=== PATIENT | female | born 1960 | race Caucasian/White ===

== ENCOUNTER → 2017-03-23 16:03 | Outpatient (REF) | payer MEDICARE, MEDICAID, SELFPAY ==
[2017-03-23 19:26] LABS: Amphetamine/Metha Screen,Urine Negative ng/mL (<1000); Barbiturates Screen,Urine Negative ng/mL (<200); Benzodiazepines Screen,Urine Negative ng/mL (200); Cannabinoid Screen,Urine Negative ng/mL (<50); Cocaine Screen,Urine Negative ng/g (<300); Methadone Screen,Urine Negative ng/mL (<300); Opiate Screen,Urine Negative ng/mL (<300); Phencyclidine Screen,Urine Negative ng/mL (<25)
== END ==
LOC: LAB 16:03
PROVIDERS: Visit Provider Emergency Medicine
DX: Z79.899 Other long term (current) drug therapy (principal)
CPT/HCPCS: 80305

== ENCOUNTER → 2017-03-24 11:34 | Outpatient (CLI) | payer MEDICARE, MEDICAID, SELFPAY ==
[2017-03-24 15:02] LABS: Occult Blood,Stool Negative (Negative)
== END ==
PROVIDERS: Visit Provider Emergency Medicine
DX: Z79.899 Other long term (current) drug therapy (principal)
CPT/HCPCS: 82272; G0328

== ENCOUNTER → 2017-04-20 10:16 | Outpatient (REF) | payer MEDICARE, MEDICAID, SELFPAY ==
[2017-04-20 14:08] LABS: Amphetamine/Metha Screen,Urine Negative ng/mL (<1000); Barbiturates Screen,Urine Negative ng/mL (<200); Benzodiazepines Screen,Urine Negative ng/mL (200); Cannabinoid Screen,Urine Negative ng/mL (<50); Cocaine Screen,Urine Negative ng/g (<300); Methadone Screen,Urine Negative ng/mL (<300); Opiate Screen,Urine Positive ng/mL (<300); Phencyclidine Screen,Urine Negative ng/mL (<25)
== END ==
LOC: LAB 10:16
PROVIDERS: Visit Provider Emergency Medicine
DX: Z79.899 Other long term (current) drug therapy (principal)
CPT/HCPCS: 80305

== ENCOUNTER → 2017-05-19 09:47 | Outpatient (REF) | payer MEDICARE, MEDICAID, SELFPAY ==
[2017-05-19 13:59] LABS: Amphetamine/Metha Screen,Urine Negative ng/mL (<1000); Barbiturates Screen,Urine Negative ng/mL (<200); Benzodiazepines Screen,Urine Negative ng/mL (200); Cannabinoid Screen,Urine Negative ng/mL (<50); Cocaine Screen,Urine Negative ng/g (<300); Methadone Screen,Urine Negative ng/mL (<300); Opiate Screen,Urine Positive ng/mL (<300); Phencyclidine Screen,Urine Negative ng/mL (<25)
== END ==
LOC: LAB 09:47
PROVIDERS: Visit Provider Emergency Medicine
DX: Z79.899 Other long term (current) drug therapy (principal)
CPT/HCPCS: 80305

== ENCOUNTER → 2017-06-19 10:39 | Outpatient (CLI) | payer MEDICARE, MEDICAID, SELFPAY ==
[2017-06-19 14:15] LABS: Amphetamine/Metha Screen,Urine Negative ng/mL (<1000); Barbiturates Screen,Urine Negative ng/mL (<200); Benzodiazepines Screen,Urine Negative ng/mL (200); Cannabinoid Screen,Urine Negative ng/mL (<50); Cocaine Screen,Urine Negative ng/g (<300); Methadone Screen,Urine Negative ng/mL (<300); Opiate Screen,Urine Positive ng/mL (<300); Phencyclidine Screen,Urine Negative ng/mL (<25)
== END ==
PROVIDERS: Visit Provider Emergency Medicine
DX: Z79.899 Other long term (current) drug therapy (principal)
CPT/HCPCS: 80305

== ENCOUNTER → 2017-07-17 11:33 | Outpatient (CLI) | payer MEDICARE, MEDICAID, SELFPAY ==
[2017-07-17 19:41] LABS: Amphetamine/Metha Screen,Urine Negative ng/mL (<1000); Barbiturates Screen,Urine Negative ng/mL (<200); Benzodiazepines Screen,Urine Negative ng/mL (200); Cannabinoid Screen,Urine Negative ng/mL (<50); Cocaine Screen,Urine Negative ng/g (<300); Methadone Screen,Urine Negative ng/mL (<300); Opiate Screen,Urine Positive ng/mL (<300); Phencyclidine Screen,Urine Negative ng/mL (<25)
== END ==
PROVIDERS: Visit Provider Emergency Medicine
DX: Z79.899 Other long term (current) drug therapy (principal); E11.9 Type 2 diabetes mellitus without complications
CPT/HCPCS: 80305

== ENCOUNTER → 2017-08-17 13:16 | Outpatient (REF) | payer MEDICARE, MEDICAID, SELFPAY ==
[2017-08-17 18:49] LABS: Amphetamine/Metha Screen,Urine Negative ng/mL (<1000); Barbiturates Screen,Urine Negative ng/mL (<200); Benzodiazepines Screen,Urine Negative ng/mL (<200); Cannabinoid Screen,Urine Negative ng/mL (<50); Cocaine Screen,Urine Negative ng/mL (<300); Methadone Screen,Urine Negative ng/mL (<300); Opiate Screen,Urine Negative ng/mL (<300); Phencyclidine Screen,Urine Negative ng/mL (<25)
== END ==
LOC: LAB 13:16
PROVIDERS: Visit Provider Emergency Medicine
DX: Z79.899 Other long term (current) drug therapy (principal)
CPT/HCPCS: 80305

== ENCOUNTER → 2017-09-14 10:33 | Outpatient (REF) | payer MEDICARE, MEDICAID, SELFPAY ==
[2017-09-14 14:09] LABS: Amphetamine/Metha Screen,Urine Negative ng/mL (<1000); Barbiturates Screen,Urine Negative ng/mL (<200); Benzodiazepines Screen,Urine Positive ng/mL (<200); Cannabinoid Screen,Urine Negative ng/mL (<50); Cocaine Screen,Urine Negative ng/mL (<300); Methadone Screen,Urine Negative ng/mL (<300); Opiate Screen,Urine Positive ng/mL (<300); Phencyclidine Screen,Urine Negative ng/mL (<25)
[2017-09-24 21:08] LABS: Alprazolam Negative (Cutoff=100); Benzodiazepines Negative ng/mL (Cutoff=100); Clonazepam Negative (Cutoff=100); Flurazepam Negative (Cutoff=100); Lorazepam Negative (Cutoff=100); Midazolam Negative (Cutoff=100); Temazepam Negative (Cutoff=100); Triazolam Negative (Cutoff=100)
== END ==
LOC: LAB 10:33
PROVIDERS: Visit Provider Emergency Medicine
DX: Z79.899 Other long term (current) drug therapy (principal)
CPT/HCPCS: 80305; 80346

== ENCOUNTER → 2017-09-15 10:20 | Outpatient (CLI) | payer MEDICARE, MEDICAID, SELFPAY | PROVIDERS: Visit Provider Emergency Medicine | DX: Z79.899 Other long term (current) drug therapy (principal) ==

== ENCOUNTER → 2017-10-14 10:49 | Outpatient (CLI) | payer MEDICARE, MEDICAID, SELFPAY ==
[2017-10-14 14:05] LABS: Amphetamine/Metha Screen,Urine Negative ng/mL (<1000); Barbiturates Screen,Urine Negative ng/mL (<200); Benzodiazepines Screen,Urine Positive ng/mL (<200); Cannabinoid Screen,Urine Negative ng/mL (<50); Cocaine Screen,Urine Negative ng/mL (<300); Methadone Screen,Urine Negative ng/mL (<300); Opiate Screen,Urine Negative ng/mL (<300); Phencyclidine Screen,Urine Negative ng/mL (<25)
== END ==
PROVIDERS: Visit Provider Emergency Medicine
DX: Z79.899 Other long term (current) drug therapy (principal)
CPT/HCPCS: 80305

== ENCOUNTER → 2017-11-10 10:16 | Outpatient (REF) | payer MEDICARE, MEDICAID, SELFPAY ==
[2017-11-10 13:59] LABS: Amphetamine/Metha Screen,Urine Negative ng/mL (<1000); Barbiturates Screen,Urine Negative ng/mL (<200); Benzodiazepines Screen,Urine Positive ng/mL (<200); Cannabinoid Screen,Urine Negative ng/mL (<50); Cocaine Screen,Urine Negative ng/mL (<300); Methadone Screen,Urine Negative ng/mL (<300); Opiate Screen,Urine Negative ng/mL (<300); Phencyclidine Screen,Urine Negative ng/mL (<25)
== END ==
LOC: LAB 10:16
PROVIDERS: Visit Provider Emergency Medicine
DX: Z79.899 Other long term (current) drug therapy (principal)
CPT/HCPCS: 80305

== ENCOUNTER → 2017-11-12 08:20 | Outpatient (CLI) | payer MEDICARE, MEDICAID, SELFPAY ==
[2017-11-18 07:28] LABS: Opiates Negative ng/mL (Cutoff=100)
== END ==
PROVIDERS: Visit Provider Emergency Medicine
DX: Z79.899 Other long term (current) drug therapy (principal)
CPT/HCPCS: 80361; G0480

== ENCOUNTER → 2017-12-11 10:12 | Outpatient (CLI) | payer MEDICARE, MEDICAID, SELFPAY ==
--- NOTE | 2017-12-11 10:16 | MM_ITS ---
MM Dig screening mamm BI w/CAD CAD Screening COMPARISON: Digital mammograms with CAD 04/03/2015 INDICATION: There is no personal or family history of breast cancer TECHNIQUE: Standard CC and MLO images were obtained. R2 CAD reviewed. FINDINGS: Scattered fibroglandular densities are seen throughout both breasts. There are couple benign-appearing calcifications right breast. There is no suspicious lesion and there are no suspicious microcalcifications. IMPRESSION: Fibrofatty parenchyma with no suspicious lesion seen BI-RADS Category: 2 Benign Finding(s) RECOMMENDED FOLLOW-UP: 1YR - 1 YEAR FOLLOW-UP (A letter has been sent to the patient regarding results of the study.)
== END ==
PROVIDERS: PCP Emergency Medicine; Visit Provider Emergency Medicine
DX: Z12.31 Encounter for screening mammogram for malignant neoplasm of breast (principal)
CPT/HCPCS: 77067

== ENCOUNTER → 2018-01-12 13:18 | Outpatient (CLI) | payer MEDICARE, MEDICAID, SELFPAY ==
[2018-01-12 14:26] LABS: Amphetamine/Metha Screen,Urine Negative ng/mL (<1000); Barbiturates Screen,Urine Negative ng/mL (<200); Benzodiazepines Screen,Urine Negative ng/mL (<200); Cannabinoid Screen,Urine Negative ng/mL (<50); Cocaine Screen,Urine Negative ng/mL (<300); Methadone Screen,Urine Negative ng/mL (<300); Opiate Screen,Urine Negative ng/mL (<300); Phencyclidine Screen,Urine Negative ng/mL (<25)
[2018-01-27 06:20] LABS: Opiates Negative ng/mL (Cutoff=100)
== END ==
PROVIDERS: Visit Provider Nurse Practitioner Family
DX: Z79.899 Other long term (current) drug therapy (principal)
CPT/HCPCS: 80305; 80361; G0480

== ENCOUNTER → 2018-03-10 18:03 | Outpatient (CLI) | payer MEDICARE, MEDICAID, SELFPAY ==
[2018-03-10 20:23] LABS: Amphetamine/Metha Screen,Urine Negative ng/mL (<1000); Barbiturates Screen,Urine Negative ng/mL (<200); Benzodiazepines Screen,Urine Negative ng/mL (<200); Cannabinoid Screen,Urine Negative ng/mL (<50); Cocaine Screen,Urine Negative ng/mL (<300); Methadone Screen,Urine Negative ng/mL (<300); Opiate Screen,Urine Negative ng/mL (<300); Phencyclidine Screen,Urine Negative ng/mL (<25)
[2018-03-11 08:44] LABS: Basophils # 0.1 K/mm3 (0-0.2); Basophils % 0.6 % (0.1-2.0); Eosinophils # 0.2 K/mm3 (0.0-0.4); Eosinophils % 1.5 % (0.1-12.0); Hematocrit 46.3 % (37.0-47.0); Hemoglobin 13.8 g/dL (12.2-16.2); Lymphocytes # 4.3 K/mm3 (0.7-4.5); Mean Corpuscular HGB Conc 29.8 g/dL (31.8-35.4); Mean Corpuscular Hemoglobin 30.7 pg (27.0-31.2); Mean Corpuscular Volume 103.1 fl (81-99); Mean Platelet Volume 8.4 fl (7.4-10.4); Monocytes # 0.5 K/mm3 (0.1-1.0); Monocytes % 3.2 % (1.7-9.3); Neutrophils # 8.9 K/mm3 (1.8-7.8); Neutrophils % 63.7 % (37.0-80.0); Platelet Count 524 K/mm3 (142-424); Red Blood Count 4.49 M/mm3 (4.20-5.40); Red Cell Distribution Width 12.7 % (11.5-17.5); White Blood Count 13.9 K/mm3 (4.8-10.8)
[2018-03-11 09:05] LABS: Hemoglobin A1C 6.7 % (0.0-7.0)
[2018-03-11 10:35] LABS: Alanine Aminotransferase 22 U/L (12-78); Albumin Level 3.8 gm/dL (3.4-5.0); Albumin/Globulin Ratio 0.9 (1.1-1.8); Alkaline Phosphatase 116 U/L (46-116); Anion Gap 14.2 mEq/L (5-15); Aspartate Amino Transferase 12 U/L (15-37); Bilirubin,Total 0.3 mg/dL (0.2-1.0); Blood Urea Nitrogen 10 mg/dL (7-18); Calcium 9.5 mg/dL (8.5-10.1); Carbon Dioxide 29 mmol/L (21.0-32.0); Chloride 103 mmol/L (98-107); Chol/HDL Ratio 5.2 (1-3.5); Cholesterol 254 mg/dL (140-200); Creatinine,Serum 0.74 mg/dL (0.55-1.02); Estimated Glomerular Filt Rate 80 ml/min (>60); GFR (African American) 97 ML/MIN (>60); Globulin 4.4 gm/dl (1.3-3.2); Glucose 88 mg/dL (74-106); HDL Cholesterol 49 mg/dL (29-89); LDL Cholesterol 144 mg/dL (0-130); Potassium 4.2 mmoL/L (3.5-5.1); Sodium 142 mmol/L (136-145); T4 (Thyroxine) 9.9 ug/dl (4.7-13.3); Thyroid Stimulating Hormone 1.06 uIU/ml (0.358-3.740); Total Protein,Serum 8.2 gm/dL (6.4-8.2); Triglycerides 307 mg/dL (30-200); VLDL Cholesterol 61 mg/dL (0-40)
[2018-03-13 11:57] LABS: Vitamin D 25 Hydroxy 18.4 ng/mL (30.0-100.0)
[2018-03-15 11:05] LABS: Opiates Negative ng/mL (Cutoff=100)
== END ==
PROVIDERS: Visit Provider Emergency Medicine
DX: Z79.899 Other long term (current) drug therapy (principal); E11.9 Type 2 diabetes mellitus without complications; R53.83 Other fatigue
CPT/HCPCS: 80053; 80061; 80305; 80361; 82652; 83036; 84436; 84443; 85025; G0480

== ENCOUNTER → 2018-05-07 11:22 | Outpatient (CLI) | payer MEDICARE, MEDICAID, SELFPAY ==
[2018-05-07 11:54] LABS: Amphetamine/Metha Screen,Urine Negative ng/mL (<1000); Barbiturates Screen,Urine Negative ng/mL (<200); Benzodiazepines Screen,Urine Positive ng/mL (<200); Cannabinoid Screen,Urine Negative ng/mL (<50); Cocaine Screen,Urine Negative ng/mL (<300); Methadone Screen,Urine Negative ng/mL (<300); Opiate Screen,Urine Positive ng/mL (<300); Phencyclidine Screen,Urine Negative ng/mL (<25)
== END ==
PROVIDERS: Visit Provider Emergency Medicine
DX: Z79.899 Other long term (current) drug therapy (principal)
CPT/HCPCS: 80305

== ENCOUNTER 2018-06-13 22:04 | Outpatient (CLI) | payer MEDICARE, MEDICAID, SELFPAY ==
[2018-06-13 22:25] VITALS: BP 174/88; PULSE 98; RESP 18; TEMP 36.6; O2SAT 94; BMI 29.9
[2018-06-13 22:30] VITALS: BP 171/87; PULSE 98; RESP 18; TEMP 36.6; O2SAT 95
== END 2018-06-13 22:30 | disposition home or self-care (01) ==
LOC: INF 22:05 → UTC.OUT 22:09
PROVIDERS: PCP Emergency Medicine; Visit Provider Emergency Medicine
DX: R60.0 Localized edema (principal)
CPT/HCPCS: 96372

== ENCOUNTER → 2018-07-23 13:18 | Outpatient (CLI) | payer MEDICARE, MEDICAID, SELFPAY ==
[2018-07-23 15:01] LABS: Amphetamine/Metha Screen,Urine Negative ng/mL (<1000); Barbiturates Screen,Urine Negative ng/mL (<200); Benzodiazepines Screen,Urine Positive ng/mL (<200); Cannabinoid Screen,Urine Negative ng/mL (<50); Cocaine Screen,Urine Negative ng/mL (<300); Methadone Screen,Urine Negative ng/mL (<300); Opiate Screen,Urine Positive ng/mL (<300); Phencyclidine Screen,Urine Negative ng/mL (<25)
== END ==
PROVIDERS: Visit Provider Emergency Medicine
DX: Z79.899 Other long term (current) drug therapy (principal)
CPT/HCPCS: 80305

== ENCOUNTER → 2018-09-03 14:00 | Outpatient (CLI) | payer MEDICARE, MEDICAID, SELFPAY ==
[2018-09-03 15:51] LABS: Amphetamine/Metha Screen,Urine Negative ng/mL (<1000); Barbiturates Screen,Urine Negative ng/mL (<200); Benzodiazepines Screen,Urine Positive ng/mL (<200); Cannabinoid Screen,Urine Negative ng/mL (<50); Cocaine Screen,Urine Negative ng/mL (<300); Methadone Screen,Urine Negative ng/mL (<300); Opiate Screen,Urine Negative ng/mL (<300); Phencyclidine Screen,Urine Negative ng/mL (<25)
== END ==
PROVIDERS: Visit Provider Emergency Medicine
DX: R35.0 Frequency of micturition (principal); Z79.899 Other long term (current) drug therapy
CPT/HCPCS: 80305; 87086; 87088; 87186

== ENCOUNTER → 2018-10-01 13:26 | Outpatient (CLI) | payer MEDICARE, MEDICAID, SELFPAY ==
[2018-10-01 15:59] LABS: Amphetamine/Metha Screen,Urine Negative ng/mL (<1000); Barbiturates Screen,Urine Negative ng/mL (<200); Benzodiazepines Screen,Urine Positive ng/mL (<200); Cannabinoid Screen,Urine Negative ng/mL (<50); Cocaine Screen,Urine Negative ng/mL (<300); Methadone Screen,Urine Negative ng/mL (<300); Opiate Screen,Urine Negative ng/mL (<300); Phencyclidine Screen,Urine Negative ng/mL (<25)
[2018-10-13 03:36] LABS: Alprazolam Negative (Cutoff=100); Benzodiazepines Positive ng/mL (Cutoff=100); Clonazepam Negative (Cutoff=100); Flurazepam Negative (Cutoff=100); Lorazepam Negative (Cutoff=100); Midazolam Negative (Cutoff=100); Temazepam Positive (.); Triazolam Negative (Cutoff=100)
[2018-10-13 07:26] LABS: Opiates Negative ng/mL (Cutoff=100)
== END ==
PROVIDERS: Visit Provider Emergency Medicine
DX: Z79.899 Other long term (current) drug therapy (principal)
CPT/HCPCS: 80305; 80346; 80361; G0480

== ENCOUNTER → 2019-01-10 11:22 | Outpatient (CLI) | payer MEDICARE, MEDICAID, SELFPAY ==
--- NOTE | 2019-01-10 11:26 | XR_ITS ---
PROCEDURE: XR HIP LT 2-3V W/PELVIS CLINICAL INDICATION: hip pain Left hip pain COMPARISON: HIP2L HIP-2 VIEWS-LT from 09/26/2012 FINDINGS: No fracture or dislocation. No significant degenerative change. No lytic or blastic lesion. There are mild osteoarthritic changes of the left SI joint. IMPRESSION: 1. Negative left hip. 2. Mild degenerative change left SI joint Dictated by: Mikal Grimm MD 01/10/2019 17:47 Electronically signed by Mikal Grimm MD in [place] 01/10/2019 17:47
== END ==
PROVIDERS: PCP Emergency Medicine; Visit Provider Emergency Medicine
DX: M25.552 Pain in left hip (principal)
CPT/HCPCS: 73502

== ENCOUNTER → 2019-01-24 14:15 | Outpatient (CLI) | payer MEDICARE, MEDICAID, SELFPAY ==
[2019-01-24 16:23] LABS: Amphetamine/Metha Screen,Urine Negative ng/mL (<1000); Barbiturates Screen,Urine Negative ng/mL (<200); Benzodiazepines Screen,Urine Positive ng/mL (<200); Cannabinoid Screen,Urine Negative ng/mL (<50); Cocaine Screen,Urine Negative ng/mL (<300); Methadone Screen,Urine Negative ng/mL (<300); Opiate Screen,Urine Positive ng/mL (<300); Phencyclidine Screen,Urine Negative ng/mL (<25)
== END ==
PROVIDERS: Visit Provider Emergency Medicine
DX: R10.2 Pelvic and perineal pain (principal); Z79.899 Other long term (current) drug therapy
CPT/HCPCS: 80305; 87086; 87088; 87186

== ENCOUNTER → 2019-08-04 17:49 | Outpatient (CLI) | payer MEDICARE, MEDICAID, SELFPAY ==
[2019-08-06 14:25] LABS: Covid-19 Nasal PCR Sendout Lex Not Detected
--- NOTE | 2019-08-06 19:15 | PC.NURSE ---
Patient called for test results, results given.
== END ==
PROVIDERS: PCP Physician Assistant; Visit Provider Physician Assistant
DX: Z03.818 Encounter for observation for suspected exposure to other biological agents ruled out (principal)
CPT/HCPCS: U0004

== ENCOUNTER → 2019-08-08 11:16 | Outpatient (CLI) | payer MEDICARE, MEDICAID, SELFPAY ==
--- NOTE | 2019-08-08 11:24 | XR_ITS ---
PROCEDURE: XR LUMBAR SPINE MIN 4V CLINICAL INDICATION: back and hip pain COMPARISON: No exams were available for comparison FINDINGS: There is lumbarization of S1 with resultant 6 lumbar segments. There is degenerative disc disease of L5 on L6 with 9 mm anterolisthesis of L5. Facet arthritic changes are also present at L5 and L6. Generalized vascular calcification is noted. No acute fracture or dislocation. No lytic or blastic change. IMPRESSION: Degenerative disc disease and facet arthritic change as detailed above Dictated by: Mikal Grimm MD 08/08/2019 12:16 Electronically signed by Mikal Grimm MD in [place] 08/08/2019 12:16
--- NOTE | 2019-08-08 11:24 | XR_ITS ---
PROCEDURE: XR HIP LT 2-3V W/PELVIS CLINICAL INDICATION: back and hip pain COMPARISON: XR HIP LT 2-3V W/PELVIS from 01/10/2019 FINDINGS: No fracture or dislocation is evident. No significant degenerative change. No lytic or blastic change. Unremarkable soft tissues. IMPRESSION: Negative left hip Dictated by: Mikal Grimm MD 08/08/2019 12:14 Electronically signed by Mikal Grimm MD in [place] 08/08/2019 12:14
== END ==
PROVIDERS: PCP Emergency Medicine; Visit Provider Emergency Medicine
DX: M54.5 Low back pain; M25.552 Pain in left hip
CPT/HCPCS: 72110; 73502

== ENCOUNTER → 2019-08-30 13:16 | Outpatient (CLI) | payer MEDICARE, MEDICAID, SELFPAY ==
--- NOTE | 2019-08-30 13:23 | MR_ITS ---
PROCEDURE: MR LUMBAR SPINE WO CON CLINICAL INDICATION: back pain Lbp xyrs. Worse on rt side. lt hip pain. Numbness and tingling down lt leg. 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 3-D MIP and myelographic images are also rendered and reviewed FINDINGS: There are 6 lumbar segments with the same numbering system as was used on the previous lumbar spine MRI. The spinal cord ends at the T12-L1 level. L2-L3: Unremarkable. L3-L4: Unremarkable. L4-5: Unremarkable. L5-L6: There is degenerative disc disease with 7 mm anterolisthesis of L5 on L6 with bulging disc along with facet and ligamentum hypertrophy with resultant canal stenosis. Transverse narrowing of the canal noted at 7 mm which appears somewhat worse than when compared to the previous exam. The anterolisthesis is somewhat greater as well. There is severe bilateral foraminal narrowing which is worse. Hypertrophic changes are present at the facets. L6-S1: Unremarkable. IMPRESSION: There is degenerative disc disease at L5-L6 with 7 mm anterolisthesis of L5 on L6 with bulging disc along with facet and ligamentum hypertrophy with resultant canal stenosis. Transverse narrowing of the canal noted at 7 mm which appears somewhat worse than when compared to the previous exam. The anterolisthesis is somewhat greater as well. There is severe bilateral foraminal narrowing which is worse. Hypertrophic changes are present at the facets There are 6 lumbar segments Dictated by: Mikal Grimm MD 08/31/2019 11:49 Electronically signed by Mikal Grimm MD in [place] 08/31/2019 11:49
== END ==
PROVIDERS: PCP Emergency Medicine; Visit Provider Emergency Medicine
DX: M54.16 Radiculopathy, lumbar region (principal)
CPT/HCPCS: 72148; 76376

== ENCOUNTER → 2019-11-23 13:21 | Outpatient (CLI) | payer MEDICARE, MEDICAID, SELFPAY ==
[2019-11-23 16:11] LABS: Basophils # 0.1 K/mm3 (0-0.2); Basophils % 0.9 % (0.1-2.0); Eosinophils # 0.2 K/mm3 (0.0-0.4); Eosinophils % 1.7 % (0.1-12.0); Hematocrit 45.2 % (37.0-47.0); Hemoglobin 14.1 g/dL (12.2-16.2); Lymphocytes # 3.4 K/mm3 (0.7-4.5); Lymphocytes % 28.3 % (10-50); Mean Corpuscular HGB Conc 31.2 g/dL (31.8-35.4); Mean Corpuscular Hemoglobin 32.9 pg (27.0-31.2); Mean Corpuscular Volume 105.3 fl (81-99); Mean Platelet Volume 8.3 fl (7.4-10.4); Monocytes # 0.5 K/mm3 (0.1-1.0); Monocytes % 4.1 % (1.7-9.3); Neutrophils # 7.9 K/mm3 (1.8-7.8); Neutrophils % 64.9 % (37.0-80.0); Platelet Count 375 K/mm3 (142-424); Red Blood Count 4.29 M/mm3 (4.20-5.40); Red Cell Distribution Width 12.7 % (11.5-17.5); White Blood Count 12.1 K/mm3 (4.8-10.8)
[2019-11-23 16:43] LABS: Alanine Aminotransferase 15 U/L (12-78); Albumin Level 4.6 g/dl (3.5-5.0); Albumin/Globulin Ratio 1.3 (1.1-1.8); Alkaline Phosphatase 108 U/L (38-126); Anion Gap 14.5 mEq/L (5-15); Aspartate Amino Transferase 25 U/L (14-36); Bilirubin,Total 0.5 mg/dl (0.2-1.3); Blood Urea Nitrogen 9 mg/dl (7-17); Calcium 9.8 mg/dl (8.4-10.2); Carbon Dioxide 31 mmol/L (22.0-30.0); Chloride 102 mmol/L (98-107); Cholesterol 268 mg/dl (140-200); Estimated Glomerular Filt Rate 102 ml/min (>60); GFR (African American) 123 ML/MIN (>60); Globulin 3.5 g/dL (1.3-3.2); Glucose 148 mg/dl (74-100); HDL Cholesterol 45 mg/dl (40-60); Potassium 4.5 mmoL/L (3.5-5.1); Sodium 143 mmol/L (136-145); Total Protein,Serum 8.1 g/dl (6.3-8.2); Triglycerides 289 mg/dl (30-150); VLDL Cholesterol 58 mg/dL (0-40)
[2019-11-23 16:54] LABS: Direct LDL Cholesterol 190.93 mg/dL (100-129)
[2019-11-23 16:59] LABS: 25-OH Vitamin D, Total 36.7 ng/mL (30-100)
[2019-11-23 17:00] LABS: Free T4 (Free Thyroxine) 0.98 ng/dl (0.78-2.19)
[2019-11-23 17:14] LABS: Hemoglobin A1C 6.4 % (4.0-6.0); Thyroid Stimulating Hormone 0.84 uIU/mL (0.465-4.68)
[2019-11-24 13:21] LABS: Creatinine,Urine Random 46 mg/dL (Not Estab.)
[2019-11-24 13:24] LABS: Microalbumin/Creatinine Ratio 32.8
== END ==
PROVIDERS: Visit Provider Emergency Medicine
DX: E11.9 Type 2 diabetes mellitus without complications (principal); E55.9 Vitamin D deficiency, unspecified; Z79.4 Long term (current) use of insulin
CPT/HCPCS: 80053; 80061; 82043; 82306; 82570; 83036; 84439; 84443; 85025

== ENCOUNTER → 2020-05-02 13:49 | Outpatient (CLI) | payer MEDICARE, MEDICAID, SELFPAY ==
[2020-05-02 14:12] LABS: Chloride 105 mmol/L (98-107)
[2020-05-02 14:13] LABS: Potassium 4.9 mmoL/L (3.5-5.1); Sodium 142 mmol/L (136-145)
[2020-05-02 14:15] LABS: Alanine Aminotransferase 12 U/L (12-78); Anion Gap 12.9 mEq/L (5-15); Aspartate Amino Transferase 23 U/L (14-36); Blood Urea Nitrogen 11 mg/dl (7-17); Carbon Dioxide 29 mmol/L (22.0-30.0); Estimated Glomerular Filt Rate 85 ml/min (>60); GFR (African American) 103 ML/MIN (>60)
[2020-05-02 14:16] LABS: Albumin Level 4.6 g/dl (3.5-5.0); Albumin/Globulin Ratio 1.4 (1.1-1.8); Alkaline Phosphatase 88 U/L (38-126); Bilirubin,Total 0.5 mg/dl (0.2-1.3); Calcium 9.6 mg/dl (8.4-10.2); Chol/HDL Ratio 5.9 (1-3.5); Cholesterol 265 mg/dl (140-200); Globulin 3.3 g/dL (1.3-3.2); Glucose 97 mg/dl (74-100); HDL Cholesterol 45 mg/dl (40-60); Total Protein,Serum 7.9 g/dl (6.3-8.2); Triglycerides 296 mg/dl (30-150); VLDL Cholesterol 59 mg/dL (0-40)
[2020-05-02 14:27] LABS: Direct LDL Cholesterol 169.89 mg/dL (100-129)
[2020-05-02 16:36] LABS: Erythrocyte Sedimentation Rate 18 mm/hr (0-30)
== END ==
PROVIDERS: Visit Provider Emergency Medicine
DX: E11.9 Type 2 diabetes mellitus without complications (principal); I10 Essential (primary) hypertension; Z79.4 Long term (current) use of insulin
CPT/HCPCS: 80053; 80061; 85651

== ENCOUNTER → 2020-08-13 07:58 | Outpatient (CLI) | payer MEDICARE, MEDICAID, SELFPAY ==
--- NOTE | 2020-08-13 07:59 | MM_ITS ---
PROCEDURE INFORMATION: Exam: MG Screening 3D Mammography Exam date and time: 08/13/2020 7:59 AM Age: 59 years old Clinical indication: Encounter for screening mammogram for malignant neoplasm of breast TECHNIQUE: Imaging protocol: Screening tomosynthesis and 2D mammography including computer-aided detection (CAD) when performed. COMPARISON: 1. MG SCBI MM Dig screening mamm BI w/CAD 12/11/2017 10:25 AM 2. MG DMSB DIG MAMM-SCREEN ELIECER 04/03/2015 4:44 PM FINDINGS: MAMMOGRAPHY: Breast composition: The breast tissue is composed of scattered areas of fibroglandular density. Mass: None. Architectural distortion: None. Calcifications: No suspicious calcifications. Asymmetric density: None. Skin thickening: None. Axillary adenopathy: None. IMPRESSION: No mammographic evidence of malignancy. Annual screening is recommended unless otherwise clinically indicated. ASSESSMENT: BI-RADS Category 1: Negative
[2020-08-13 08:52] LABS: Basophils # 0.1 K/mm3 (0-0.2); Basophils % 0.8 % (0.1-2.0); Eosinophils # 0.2 K/mm3 (0.0-0.4); Eosinophils % 1.7 % (0.1-12.0); Hematocrit 46.2 % (37.0-47.0); Hemoglobin 14.7 g/dL (12.2-16.2); Lymphocytes # 2.9 K/mm3 (0.7-4.5); Lymphocytes % 25.1 % (10-50); Mean Corpuscular HGB Conc 31.7 g/dL (31.8-35.4); Mean Corpuscular Hemoglobin 32.1 pg (27.0-31.2); Mean Corpuscular Volume 101.3 fl (81-99); Mean Platelet Volume 6.8 fl (7.4-10.4); Monocytes # 0.5 K/mm3 (0.1-1.0); Monocytes % 4.1 % (1.7-9.3); Neutrophils % 68.3 % (37.0-80.0); Platelet Count 343 K/mm3 (142-424); Red Blood Count 4.56 M/mm3 (4.20-5.40); Red Cell Distribution Width 12.3 % (11.5-17.5); White Blood Count 11.7 K/mm3 (4.8-10.8)
[2020-08-13 09:21] LABS: Hemoglobin A1C 6.4 % (4.0-6.0)
[2020-08-13 09:48] LABS: Alanine Aminotransferase 12 U/L (12-78); Albumin Level 4.5 g/dl (3.5-5.0); Albumin/Globulin Ratio 1.4 (1.1-1.8); Alkaline Phosphatase 109 U/L (38-126); Anion Gap 12.6 mEq/L (5-15); Aspartate Amino Transferase 19 U/L (14-36); Bilirubin,Total 0.6 mg/dl (0.2-1.3); Blood Urea Nitrogen 10 mg/dl (7-17); Calcium 9.8 mg/dl (8.4-10.2); Carbon Dioxide 30 mmol/L (22.0-30.0); Chloride 106 mmol/L (98-107); Chol/HDL Ratio 3.1 (1-3.5); Cholesterol 159 mg/dl (140-200); Estimated Glomerular Filt Rate 102 ml/min (>60); GFR (African American) 123 ML/MIN (>60); Globulin 3.2 g/dL (1.3-3.2); Glucose 124 mg/dl (74-100); HDL Cholesterol 52 mg/dl (40-60); Potassium 5.6 mmoL/L (3.5-5.1); Sodium 143 mmol/L (136-145); Total Protein,Serum 7.7 g/dl (6.3-8.2); Triglycerides 167 mg/dl (30-150); VLDL Cholesterol 33 mg/dL (0-40)
[2020-08-13 10:01] LABS: Direct LDL Cholesterol 78.69 mg/dL (100-129)
[2020-08-13 10:04] LABS: 25-OH Vitamin D, Total 50.4 ng/mL (30-100); Free T4 (Free Thyroxine) 0.85 ng/dl (0.78-2.19)
[2020-08-13 10:18] LABS: Thyroid Stimulating Hormone 0.63 uIU/mL (0.465-4.68)
== END ==
PROVIDERS: PCP Emergency Medicine; Visit Provider Emergency Medicine
DX: Z12.31 Encounter for screening mammogram for malignant neoplasm of breast (principal)
CPT/HCPCS: 36415; 77063; 77067; 80053; 80061; 82306; 83036; 84439; 84443; 85025

== ENCOUNTER → 2020-08-13 08:30 | Outpatient (CLI) | payer MEDICARE, MEDICAID, SELFPAY | PROVIDERS: Visit Provider Emergency Medicine | DX: E87.5 Hyperkalemia (principal); I10 Essential (primary) hypertension; E11.9 Type 2 diabetes mellitus without complications; E66.3 Overweight; Z79.4 Long term (current) use of insulin; Z68.30 Body mass index [BMI] 30.0-30.9, adult; Z12.31 Encounter for screening mammogram for malignant neoplasm of breast | CPT/HCPCS: 36415; 77063; 77067; 80053; 80061; 82306; 83036; 84439; 84443; 85025 ==

== ENCOUNTER → 2020-08-16 16:56 | Outpatient (CLI) | payer MEDICARE, MEDICAID, SELFPAY ==
[2020-08-16 18:21] LABS: Anion Gap 14.7 mEq/L (5-15); Blood Urea Nitrogen 13 mg/dl (7-17); Calcium 9.2 mg/dl (8.4-10.2); Carbon Dioxide 27 mmol/L (22.0-30.0); Chloride 105 mmol/L (98-107); Estimated Glomerular Filt Rate 85 ml/min (>60); GFR (African American) 103 ML/MIN (>60); Glucose 116 mg/dl (74-100); Potassium 4.7 mmoL/L (3.5-5.1); Sodium 142 mmol/L (136-145)
[2020-08-16 19:27] LABS: Vitamin B12 323 pg/mL (239-931)
[2020-08-16 19:28] LABS: Folate 2.43 ng/mL
== END ==
PROVIDERS: Visit Provider Emergency Medicine
DX: E87.5 Hyperkalemia (principal)
CPT/HCPCS: 80048; 82607; 82746

== ENCOUNTER → 2020-10-22 17:48 | Outpatient (CLI) | payer MEDICARE, MEDICAID, SELFPAY ==
[2020-10-22 21:12] LABS: Benzodiazepines Screen,Urine Positive ng/ml (<200)
[2020-10-22 21:13] LABS: Amphetamine/Metha Screen,Urine Negative ng/ml (<1000)
[2020-10-22 21:14] LABS: Barbiturates Screen,Urine Negative ng/ml (<200); Cannabinoid Screen,Urine Negative ng/ml (<50)
[2020-10-22 21:15] LABS: Cocaine Screen,Urine Negative ng/ml (<300)
[2020-10-22 21:16] LABS: Methadone Screen,Urine Negative ng/ml (<300); Opiate Screen,Urine Positive ng/ml (<300)
[2020-10-22 21:17] LABS: Phencyclidine Screen,Urine Negative ng/ml (<25)
== END ==
PROVIDERS: Visit Provider Emergency Medicine
DX: Z79.899 Other long term (current) drug therapy (principal)
CPT/HCPCS: 80305

== ENCOUNTER → 2020-10-25 12:30 | Outpatient (CLI) | payer MEDICARE, MEDICAID, SELFPAY | PROVIDERS: PCP Emergency Medicine; Visit Provider Nurse Practitioner | DX: Z20.822 Contact with and (suspected) exposure to COVID-19 (principal); U07.1 COVID-19 | CPT/HCPCS: C9803; U0003; U0005 ==

== ENCOUNTER → 2021-06-18 22:42 | Outpatient (CLI) | payer MEDICARE, MEDICAID, SELFPAY ==
--- NOTE | 2021-06-18 23:54 | XR_ITS ---
FINAL REPORT CLINICAL HISTORY: FALL COMPARISON: August 08, 2019 FINDINGS: 5 views of the lumbar spine were obtained. There is no evidence of fracture. There is mild rightward curvature. There is 9 mm of anterolisthesis of L4 on L5. There are mild and moderate degenerative changes. There is facet arthropathy of the lower lumbar spine. There is a questionable L4 pars defect. Vascular calcifications are seen. IMPRESSION: Questionable L4 pars defect. If indicated CT scan could further evaluate. Multilevel degenerative changes, details as above. Reviewed, Interpreted and Dictated by Reji Palomo III, MD Transcribed by Emperatriz Gomes Authenticated by Reji Palomo III, MD on 06/19/2021 09:19:[address] [facility]
--- NOTE | 2021-06-18 23:55 | XR_ITS ---
FINAL REPORT CLINICAL HISTORY: FALL COMPARISON: August 08, 2019 FINDINGS: LEFT HIP: Three views of the left hip pelvis demonstrate no acute fracture or dislocation. There are mild degenerative changes. The visualized bony structures are well aligned. No soft tissue abnormality is seen. IMPRESSION: Stable degenerative changes. Reviewed, Interpreted and Dictated by Reji Palomo III, MD Transcribed by Emperatriz Gomes Authenticated by Reji Palomo III, MD on 06/19/2021 09:19:36 AM [facility]
== END ==
PROVIDERS: PCP Emergency Medicine; Visit Provider Emergency Medicine
DX: M54.50 Low back pain, unspecified (principal); M53.3 Sacrococcygeal disorders, not elsewhere classified; M25.552 Pain in left hip; W19.XXXA Unspecified fall, initial encounter
CPT/HCPCS: 72110; 73502

== ENCOUNTER → 2021-11-19 10:51 | Outpatient (CLI) | payer MEDICARE, MEDICAID, SELFPAY ==
[2021-11-19 11:24] LABS: Basophils # 0.2 K/mm3 (0-0.2); Basophils % 1.8 % (0.1-2.0); Eosinophils # 0.1 K/mm3 (0.0-0.4); Hemoglobin 15.6 g/dL (12.2-16.2); Lymphocytes # 2.9 K/mm3 (0.7-4.5); Lymphocytes % 23.5 % (10-50); Mean Corpuscular HGB Conc 32.6 g/dL (31.8-35.4); Mean Corpuscular Hemoglobin 33.2 pg (27.0-31.2); Mean Corpuscular Volume 101.7 fl (81-99); Mean Platelet Volume 7.5 fl (7.4-10.4); Monocytes # 0.5 K/mm3 (0.1-1.0); Monocytes % 3.7 % (1.7-9.3); Neutrophils # 8.6 K/mm3 (1.8-7.8); Neutrophils % 69.9 % (37.0-80.0); Platelet Count 414 K/mm3 (142-424); Red Blood Count 4.71 M/mm3 (4.20-5.40); White Blood Count 12.3 K/mm3 (4.8-10.8)
[2021-11-19 11:51] LABS: Hemoglobin A1C 6.2 % (4.0-6.0)
[2021-11-19 12:07] LABS: Alanine Aminotransferase 16 U/L (12-78); Albumin Level 4.3 g/dl (3.5-5.0); Albumin/Globulin Ratio 1.3 (1.1-1.8); Alkaline Phosphatase 127 U/L (38-126); Anion Gap 15.8 mEq/L (5-15); Aspartate Amino Transferase 27 U/L (14-36); Bilirubin,Total 0.6 mg/dl (0.2-1.3); Blood Urea Nitrogen 6 mg/dl (7-17); Calcium 9.5 mg/dl (8.4-10.2); Carbon Dioxide 28 mmol/L (22.0-30.0); Chloride 101 mmol/L (98-107); Chol/HDL Ratio 4.8 (1-3.5); Cholesterol 227 mg/dl (140-200); Estimated Glomerular Filt Rate 101 ml/min (>60); GFR (African American) 122 ML/MIN (>60); Globulin 3.3 g/dL (1.3-3.2); Glucose 130 mg/dl (74-100); HDL Cholesterol 47 mg/dl (40-60); Potassium 3.8 mmoL/L (3.5-5.1); Sodium 141 mmol/L (136-145); Total Protein,Serum 7.6 g/dl (6.3-8.2); Triglycerides 176 mg/dl (30-150); VLDL Cholesterol 35 mg/dL (0-40)
[2021-11-19 12:24] LABS: 25-OH Vitamin D, Total 31.9 ng/mL (30-100); Direct LDL Cholesterol 146.04 mg/dL (100-129); Free T4 (Free Thyroxine) 0.89 ng/dl (0.78-2.19)
[2021-11-19 12:37] LABS: Thyroid Stimulating Hormone 0.31 uIU/mL (0.465-4.68)
== END ==
PROVIDERS: PCP Emergency Medicine; Visit Provider Emergency Medicine
DX: E66.9 Obesity, unspecified (principal); E55.9 Vitamin D deficiency, unspecified; I10 Essential (primary) hypertension; Z79.899 Other long term (current) drug therapy
CPT/HCPCS: 36415; 80053; 80061; 82306; 83036; 84439; 84443; 85025

== ENCOUNTER → 2021-12-04 13:39 | Outpatient (CLI) | payer MEDICARE, MEDICAID, SELFPAY ==
[2021-12-04 17:29] LABS: Influenza A, PCR Not Detected (NotDetected); Influenza B, PCR Not Detected (NotDetected)
[2021-12-04 20:15] LABS: Coronavirus 19, PCR Detected (NotDetected)
== END ==
PROVIDERS: PCP Emergency Medicine; Visit Provider Emergency Medicine
DX: R09.81 Nasal congestion (principal); U07.1 COVID-19
CPT/HCPCS: C9803; U0003; U0005

== ENCOUNTER → 2022-04-04 10:39 | Outpatient (CLI) | payer MEDICARE, MEDICAID, SELFPAY ==
--- NOTE | 2022-04-04 10:39 | US_ITS ---
FINAL REPORT TECHNIQUE: Ultrasound images of the abdomen were obtained. CLINICAL HISTORY: Abdominal pain, hx aaa COMPARISON: none FINDINGS: ABDOMINAL ULTRASOUND COMPLETE: The liver is fatty infiltrated. The gallbladder is surgically absent. The common duct is normal at 2 mm. The right kidney measures 11.5 cm in length and is normal in echogenicity without hydronephrosis. The left kidney measures 9.3 cm in length and is normal in echogenicity without hydronephrosis. The spleen is unremarkable. The pancreas is partially obscured by overlying bowel gas. The visualized portions of the aorta and the IVC are normal. The vena cava is unremarkable. IMPRESSION: Fatty infiltration of the liver. Reviewed, Interpreted and Dictated by Reji Palomo III, MD Transcribed by Kirsty Forrester Authenticated and . [facility]
== END ==
LOC: RAD 10:39
PROVIDERS: PCP Emergency Medicine; Visit Provider Emergency Medicine
DX: R10.9 Unspecified abdominal pain (principal)
CPT/HCPCS: 76700

== ENCOUNTER 2022-07-04 11:39 | Emergency (ER) | payer MEDICARE, MEDICAID, SELFPAY ==
[2022-07-04 11:40] VITALS: BP 180/86; PULSE 93; RESP 16; TEMP 36.9; O2SAT 98; BMI 29.2
--- NOTE | 2022-07-04 12:05 | XR_ITS ---
FINAL REPORT CLINICAL HISTORY: fall, rt ankle pain COMPARISON: None FINDINGS: Right ankle: Three views of the right ankle were obtained. There is no acute fracture or dislocation. The joint spaces and mortise are intact. There is no soft tissue abnormality. Mild degenerative change is noted in the ankle and midfoot. IMPRESSION: No acute bony abnormality. Reviewed, Interpreted and Dictated by Reji Palomo III, MD Transcribed by Concha Esteban Authenticated and [facility]
--- NOTE | 2022-07-04 12:05 | XR_ITS ---
FINAL REPORT CLINICAL HISTORY: fall, rt leg pain COMPARISON: None FINDINGS: There is no acute fracture or dislocation. There is no soft tissue abnormality. Mild degenerative change is present in the knee. IMPRESSION: No acute fracture Reviewed, Interpreted and Dictated by Reji Palomo III, MD Transcribed by Concha Esteban Authenticated and . [facility]
--- NOTE | 2022-07-04 12:06 | PC.NURSE ---
notified rad of orders placed
--- NOTE | 2022-07-04 12:27 | HMH.EDGENADL ---
Discharge Plan Disposition Patient Disposition: Home, Self-Care Prescriptions Prescriptions: No Action (DME) insulin syringe-needle U-100 [UltiCare] 0.3 mL 30 gauge x 1/2 syringe See Dose Instructions .ROUTE .MEDSUPPLY Qty: 10 Rx Instructions: As directed metformin 500 mg tablet 500 mg PO BID Qty: 180 0RF loperamide [Imodium A-D] 2 mg capsule 2 mg PO Q6H PRN (Reason: loose stool) Qty: 30 0RF Trelegy Ellipta 100-62.5-25 mcg blister with device 1 inh inhalation DAILY Qty: 60 2RF (DME) blood-glucose meter Misc See Rx Instructions .Route Qty: 1 0RF Rx Instructions: test sugar twice daily or As directed (DME) Blood Glucose Test Strip See Rx Instructions .Route Qty: 100 1RF Rx Instructions: Test sugar twice daily or As directed (DME) lancets 30 gauge misc See Rx Instructions .Route Qty: 100 1RF Rx Instructions: test twice daily or As directed Ozempic 0.25 mg or 0.5 mg(2 mg/1.5 mL) pen injector 0.25 mg SQ WEEKLY Qty: 1.5 2RF Rx Instructions: 0.25mg weekly for 4weeks then 0.5mg weekly hydrocortisone 2.5 % cream 1 applic TOPICAL BID PRN (Reason: itching) Qty: 30 0RF prochlorperazine maleate [Compazine] 10 mg tablet 10 mg PO BID PRN (Reason: nausea and vomiting) Qty: 20 0RF sertraline 200 mg capsule 200 mg PO DAILY Qty: 30 2RF diazepam [Valium] 5 mg tablet 5 mg PO BID PRN (Reason: anxiety) Qty: 60 1RF gabapentin 800 mg tablet 800 mg PO QID Qty: 120 1RF alcohol swabs [BD Alcohol Swabs] pads, medicated 1 pad TOPICAL NEEDED Qty: 100 1RF (DME) pen needle, diabetic [UltiCare Pen Needle] 31 gauge x 1/4 needle See Dose Instructions .ROUTE .MEDSUPPLY Qty: 100 1RF Dose Instruction: As directed Rx Instructions: As directed fexofenadine [Manuela Allergy] 180 mg tablet 180 mg PO DAILY Qty: 30 0RF atorvastatin 40 mg tablet See Rx Instructions .ROUTE .COMPLEX Qty: 90 0RF Dose Instruction: TAKE ONE TABLET BY MOUTH EVERY NIGHT AT BEDTIME Rx Instructions: TAKE ONE TABLET BY MOUTH EVERY NIGHT AT BEDTIME cholecalciferol (vitamin D3) 25 mcg (1,000 unit) capsule 25 mcg PO DAILY Qty: 90 0RF fluticasone propionate [Flonase Allergy Relief] 50 mcg/actuation spray,suspension 1 spray intranasal DAILY Qty: 16 2RF Rx Instructions: administer into each nostril albuterol sulfate 90 mcg/actuation HFA aerosol inhaler 2 puff inhalation Q8H PRN (Reason: shortness of breath or wheezing) Qty: 8.5 2RF omeprazole 40 mg capsule,delayed release(DR/EC) See Rx Instructions .ROUTE .COMPLEX Qty: 90 0RF Dose Instruction: TAKE ONE CAPSULE BY MOUTH EVERY DAY Rx Instructions: TAKE ONE CAPSULE BY MOUTH EVERY DAY albuterol sulfate 0.63 mg/3 mL solution for nebulization 0.63 mg inhalation QID PRN (Reason: shortness of breath or wheezing) Qty: 90 2RF insulin aspart U-100 [Novolog FlexPen U-100 Insulin] 100 unit/mL (3 mL) insulin pen See Rx Instructions .ROUTE .COMPLEX Qty: 45 0RF Dose Instruction: INJECT 10 UNITS BELOW THE SKIN FOUR TIMES DAILY PER SLIDING SCALE Rx Instructions: INJECT 10 UNITS BELOW THE SKIN FOUR TIMES DAILY PER SLIDING SCALE Levemir FlexTouch U100 Insulin 100 unit/mL (3 mL) insulin pen See Rx Instructions .ROUTE .COMPLEX Qty: 15 0RF Dose Instruction: INJECT 27 UNITS SUBCUTANEOUSLY TWICE DAILY Rx Instructions: INJECT 27 UNITS SUBCUTANEOUSLY TWICE DAILY oxycodone 10 mg tablet 10 mg PO QID PRN (Reason: pain) Qty: 120 0RF ondansetron HCl 4 mg tablet See Rx Instructions .ROUTE .COMPLEX Qty: 30 0RF Dose Instruction: TAKE 1 TABLET BY MOUTH EVERY 8 HOURS NEEDED FOR NAUSEA AND VOMITING Rx Instructions: TAKE 1 TABLET BY MOUTH EVERY 8 HOURS NEEDED FOR NAUSEA AND VOMITING bacitracin 500 unit/gram ointment 1 applic topical Q8H Qty: 28 0RF azithromycin [Zithromax Z-Ty] 250 mg tablet Se
[2022-07-04 12:30] VITALS: BP 127/79; PULSE 82; RESP 20; O2SAT 97
--- NOTE | 2022-07-04 12:35 | PC.NURSE ---
rad at BS for portable xray
--- NOTE | 2022-07-04 12:41 | PC.NURSE ---
washed pt wound with soap & water ,dried off then place antibiotic ointment on wound and non stick pad and wrap wound
[2022-07-04 13:00] VITALS: BP 129/77; PULSE 84; RESP 20; O2SAT 97
[2022-07-04 13:50] VITALS: BP 120/52; PULSE 79; RESP 18; TEMP 36.6; O2SAT 95
== END 2022-07-04 13:50 | disposition home or self-care (01) ==
PROVIDERS: Emergency Provider Student in an Organized Health Care Education/Training Program; PCP Emergency Medicine
DX: S80.811A Abrasion, right lower leg, initial encounter (principal); S93.401A Sprain of unspecified ligament of right ankle, initial encounter; W01.0XXA Fall on same level from slipping, tripping and stumbling without subsequent striking against object, initial encounter; Y93.H2 Activity, gardening and landscaping
CPT/HCPCS: 73590; 73610; 99283

== ENCOUNTER → 2023-01-05 10:20 | Outpatient (CLI) | payer MEDICARE, SELFPAY ==
[2023-01-05 18:27] LABS: Basophils # 0.1 K/mm3 (0-0.2); Basophils % 0.7 % (0.1-2.0); Eosinophils # 0.2 K/mm3 (0.0-0.4); Eosinophils % 1.8 % (0.1-12.0); Hematocrit 45.6 % (37.0-47.0); Lymphocytes # 4.7 K/mm3 (0.7-4.5); Mean Corpuscular HGB Conc 32.9 g/dL (31.8-35.4); Mean Corpuscular Hemoglobin 33.5 pg (27.0-31.2); Mean Corpuscular Volume 101.7 fl (81-99); Mean Platelet Volume 8.2 fl (7.4-10.4); Monocytes # 0.6 K/mm3 (0.1-1.0); Monocytes % 5.2 % (1.7-9.3); Neutrophils # 5.6 K/mm3 (1.8-7.8); Neutrophils % 50.2 % (37.0-80.0); Platelet Count 302 K/mm3 (142-424); Red Blood Count 4.48 M/mm3 (4.20-5.40); Red Cell Distribution Width 13.8 % (11.5-17.5); White Blood Count 11.2 K/mm3 (4.8-10.8)
[2023-01-05 18:34] LABS: Hemoglobin A1C 6.1 % (4.0-6.0)
[2023-01-05 18:42] LABS: Alanine Aminotransferase 13 U/L (12-78); Albumin Level 4.4 g/dl (3.5-5.0); Albumin/Globulin Ratio 1.2 (1.1-1.8); Anion Gap 10.6 mEq/L (5-15); Aspartate Amino Transferase 24 U/L (14-36); Bilirubin,Total 0.5 mg/dl (0.2-1.3); Blood Urea Nitrogen 12 mg/dl (7-17); Calcium 8.8 mg/dl (8.4-10.2); Carbon Dioxide 29 mmol/L (22.0-30.0); Chloride 101 mmol/L (98-107); Cholesterol 273 mg/dl (140-200); Estimated Glomerular Filt Rate 84 ml/min (>60); GFR (African American) 102 ML/MIN (>60); Globulin 3.6 g/dL (1.3-3.2); Glucose 86 mg/dl (74-100); HDL Cholesterol 45 mg/dl (40-60); Potassium 4.6 mmoL/L (3.5-5.1); Sodium 136 mmol/L (136-145); Triglycerides 230 mg/dl (30-150); VLDL Cholesterol 46 mg/dL (0-40)
[2023-01-05 18:43] LABS: Alkaline Phosphatase 107 U/L (38-126); Chol/HDL Ratio 6.1 (1-3.5)
[2023-01-05 18:53] LABS: Direct LDL Cholesterol 165.28 mg/dL (100-129)
[2023-01-05 18:59] LABS: 25-OH Vitamin D, Total 27.3 ng/mL (30-100)
[2023-01-05 19:18] LABS: Creatinine,Urine Random 17 mg/dL (Not Estab.)
[2023-01-05 19:21] LABS: Barbiturates Screen,Urine Negative ng/ml (<200); Microalbumin < 6.000 mg/L (0-16.7)
[2023-01-05 19:22] LABS: Amphetamine/Metha Screen,Urine Negative ng/ml (<1000); Benzodiazepines Screen,Urine Negative ng/ml (<200)
[2023-01-05 19:23] LABS: Cocaine Screen,Urine Negative ng/ml (<300); Methadone Screen,Urine Negative ng/ml (<300)
[2023-01-05 19:24] LABS: Cannabinoid Screen,Urine Negative ng/ml (<50)
[2023-01-05 19:25] LABS: Opiate Screen,Urine Negative ng/ml (<300); Phencyclidine Screen,Urine Negative ng/ml (<25)
== END ==
LOC: LAB.DROPOF 01-06 10:21
PROVIDERS: PCP Internal Medicine; Visit Provider Internal Medicine
DX: E11.9 Type 2 diabetes mellitus without complications (principal); R10.9 Unspecified abdominal pain; Z79.899 Other long term (current) drug therapy; E55.9 Vitamin D deficiency, unspecified; E78.5 Hyperlipidemia, unspecified; Z79.4 Long term (current) use of insulin; B96.1 Klebsiella pneumoniae [K. pneumoniae] as the cause of diseases classified elsewhere
CPT/HCPCS: 80053; 80061; 80307; 82043; 82306; 82570; 83036; 84443; 85025; 87086

== ENCOUNTER → 2023-01-26 13:02 | Outpatient (CLI) | payer MEDICARE, SELFPAY ==
[2023-01-26 20:28] LABS: Benzodiazepines Screen,Urine Positive ng/ml (<200)
[2023-01-26 20:29] LABS: Amphetamine/Metha Screen,Urine Negative ng/ml (<1000); Barbiturates Screen,Urine Negative ng/ml (<200)
[2023-01-26 20:30] LABS: Methadone Screen,Urine Negative ng/ml (<300)
[2023-01-26 20:31] LABS: Cannabinoid Screen,Urine Negative ng/ml (<50); Cocaine Screen,Urine Negative ng/ml (<300)
[2023-01-26 20:32] LABS: Opiate Screen,Urine Positive ng/ml (<300)
[2023-01-26 20:33] LABS: Phencyclidine Screen,Urine Negative ng/ml (<25)
== END ==
PROVIDERS: PCP Internal Medicine; Visit Provider Internal Medicine
DX: Z79.899 Other long term (current) drug therapy (principal)
CPT/HCPCS: 80305

== ENCOUNTER 2023-05-04 14:36 | Outpatient (CLI) | payer MEDICARE, SELFPAY ==
[2023-05-04 14:57] LABS: Basophils # 0.2 K/mm3 (0-0.2); Basophils % 1.7 % (0.1-2.0); Eosinophils # 0.2 K/mm3 (0.0-0.4); Eosinophils % 2.2 % (0.1-12.0); Hematocrit 44.1 % (37.0-47.0); Hemoglobin 14.5 g/dL (12.2-16.2); Lymphocytes # 2.9 K/mm3 (0.7-4.5); Lymphocytes % 29.8 % (10-50); Mean Corpuscular Hemoglobin 34.4 pg (27.0-31.2); Mean Corpuscular Volume 104.4 fl (81-99); Mean Platelet Volume 7.5 fl (7.4-10.4); Monocytes # 0.4 K/mm3 (0.1-1.0); Monocytes % 4.1 % (1.7-9.3); Neutrophils # 6.1 K/mm3 (1.8-7.8); Neutrophils % 62.3 % (37.0-80.0); Platelet Count 336 K/mm3 (142-424); Red Blood Count 4.22 M/mm3 (4.20-5.40); Red Cell Distribution Width 13.2 % (11.5-17.5); White Blood Count 9.7 K/mm3 (4.8-10.8)
[2023-05-04 16:00] LABS: Anion Gap 12.9 mEq/L (5-15); Blood Urea Nitrogen 10 mg/dl (7-17); Calcium 9.7 mg/dl (8.4-10.2); Carbon Dioxide 27 mmol/L (22.0-30.0); Chloride 102 mmol/L (98-107); Estimated Glomerular Filt Rate 84 ml/min (>60); GFR (African American) 102 ML/MIN (>60); Glucose 222 mg/dl (74-100); Potassium 3.9 mmoL/L (3.5-5.1); Sodium 138 mmol/L (136-145)
[2023-05-04 16:19] LABS: Free T4 (Free Thyroxine) 1.07 ng/dl (0.78-2.19)
[2023-05-04 16:24] LABS: Troponin I < 0.01 ng/ml (0.00-0.034)
[2023-05-04 16:31] LABS: Thyroid Stimulating Hormone 0.95 uIU/mL (0.465-4.68)
== END 2023-05-04 23:59 ==
PROVIDERS: PCP Family Medicine; Visit Provider Nurse Practitioner Family
DX: E78.2 Mixed hyperlipidemia (principal); E11.9 Type 2 diabetes mellitus without complications; R06.00 Dyspnea, unspecified; I10 Essential (primary) hypertension; I65.29 Occlusion and stenosis of unspecified carotid artery; R00.2 Palpitations; R07.89 Other chest pain; J43.8 Other emphysema; K21.9 Gastro-esophageal reflux disease without esophagitis; Z87.891 Personal history of nicotine dependence
CPT/HCPCS: 36415; 80048; 84439; 84443; 84484; 85025

== ENCOUNTER 2023-05-12 11:43 | Outpatient (CLI) | payer MEDICARE, SELFPAY ==
--- NOTE | 2023-05-12 11:44 | NM_ITS ---
APPROVED REPORT Exam: Nuclear Stress Test Indication: HTN, HYPERLIPIDEMIA, FORMER SMOKER, FM HX, C.P., PALPITATIONS, ABN EKG Patient Location: Outpatient Stress Tech: Nichol Layton NM Tech:Hansa Lopez, ARRT, RT (R)(N) Ht: 5 ft 5 in Wt: 172 lbs Bra Size: 36B HR: 58 bpm BP: 167/74 mmHg BSA: 1.86 m2 TID: 1.24 BMI: 28.6 History: HTN, HYPERLIPIDEMIA, FORMER SMOKER, FM HX, C.P., PALPITATIONS, ABN EKG PT CANNOT LAY ON STOMACH FOR PRONE IMAGES Procedure: Patient received 0.4 mg of intravenous Lexiscan, resting heart rate 58 bpm, resting blood pressure 167/74 mmHg, with Lexiscan maximum heart rate achieved was 88 bpm which is % of the maximum predicted heart rate and blood pressure was 184/77 mmHg. With Lexiscan, patient denied any complaint of chest pain. Cardiac Stress and Resting SPECT Images: Cardiac Stress and Resting SPECT images were obtained using technetium 99m Myoview 32.2 mCi stress and 10.99 mCi at rest. The patient could not lie on his abdomen. Therefore, phosphorus imaging could not be performed. This may affect the diagnostic interpretation of the study findings. Resting and stress imaging and supine positions demonstrate no evidence of focal fixed or reversible perfusion defects. There is increased transient ischemic dilatation ratio (TID 1.24), suggestive of possible multivessel disease or balanced ischemia. Gated imaging demonstrates low normal global and regional LV systolic function. LVEF is calculated at 51%. Conclusion: No evidence of focal fixed or reversible perfusion defects. There is increased transient ischemic dilatation ratio (TID 1.24), suggestive of possible multivessel disease or balanced ischemia. Gated imaging demonstrates low normal global and regional LV systolic function. LVEF is calculated at 51%. Electronically signed by : Maritza Aguilar MD 05/13/2023 13:20:17
[2023-05-12] MEDS: ISOTOPE MYOVIEW (PER STUDY) 1 DOSE IV (13:35)
[2023-05-12] MEDS: SODIUM CHLORIDE 0.9% 10ML SYR (RAD ONLY) 10 ML IV ×2 (13:35)
[2023-05-12] MEDS: REGADENOSON 0.4MG/5ML SYRINGE 0.400000000000000022 MG IV (13:35)
--- NOTE | 2023-05-12 13:50 | CA_ITS ---
APPROVED REPORT Exam: Pharmacologic Technologist: Nichol Neely, Ht: 5 ft 5 in Wt: 173 lbs BSA: 1.86 m2 HR: 58 bpm BP: 167/74 mmHg Rhythm: NSR Medical History Medications: Albuterol,,,,, FeNOfibrate,,,,, OxYCODONE,,,,, Valium,,,,, Sertraline,,,,, Toprol XL,,,,, Budesonide,,,,, ONdansetron HCI,,,,, Stress Test Details Test: LEXISCAN Reason for pharmacologic stress test: physical limitation. HR Resting HR: 58 bpm Max Heart Rate (APMHR): 156 bpm Max HR Achieved: 88 bpm Target HR (85% APMHR): 133 bpm % of APMHR: 56 Recovery HR: 77 bpm BP Resting BP: 167.0/74.0 mmHg Max BP: 184.0/77.0 mmHg Recovery BP: 184.0/77.0 mmHg ECG Resting ECG: Normal Stress ECG: No significant ST changes Arrhythmia: Occasional PVCs Clinical Exercise duration: 04:00 min Highest Stage Achieved: Stress ECG Conclusion Symptoms: SOA, chest pressure, dizzy Arrhythmias/Ectopy: Occasional PVC ST-T Changes: No significant ST change Conclusion: Unremarkable Lexiscan stress test. Myoview images reported separately. Test Summary REST . . . . . . . Resting REST 06:00 . . 58 . 167/ 74 . . Stage 1 01:00 . . 81 . . . . Stage 2 01:00 . . 81 . 176/ 82 . . Stage 3 01:00 . . 80 . 167/ 84 . . Stage 4 01:00 . . 82 . 175/ 98 . Stop exercise at 04:00 RECOVERY 01:00 . . 78 . . . . RECOVERY 02:00 . . 77 . 184/ 77 . . RECOVERY 02:04 . . 78 . 184/ 77 . . Electronically signed by : Maritza Aguilar MD 05/13/2023 13:12:16
== END 2023-05-12 23:59 ==
LOC: RAD 11:44
PROVIDERS: PCP Family Medicine; Visit Provider Family Medicine
DX: R07.9 Chest pain, unspecified (principal); R00.2 Palpitations
CPT/HCPCS: 78452; 93017; 93018; A9502; J2785

== ENCOUNTER 2023-05-18 07:53 | Outpatient (CLI) | payer MEDICARE, MEDICAID, SELFPAY ==
--- NOTE | 2023-05-18 07:55 | CA_ITS ---
FINAL REPORT TECHNIQUE: Grayscale, color Doppler and duplex Doppler ultrasound of the kidneys, aorta and renal arteries was performed. Multiple velocities were measured. CLINICAL HISTORY: HTN,EX SMOKER FINDINGS: Aorta velocity: 116 cm/sec Right kidney: 11.3 cm. No evidence of hydronephrosis or mass. Right intrarenal RI: 0.65 Right renal artery velocity: 138 cm/sec. Right RAR (Renal artery-Aortic Ratio): 1.2 Left Kidney: 10.3 cm. No evidence of hydronephrosis or mass. Left intrarenal RI: 0.68 Left renal artery velocity: 141 cm/sec. Left RAR (Renal Artery-Aortic Ratio): 1.2 IMPRESSION: No evidence of significant renal artery stenosis. CT angiogram or postcontrast MR angiogram would be more sensitive for evaluation of possible renal artery stenosis. Reviewed, Interpreted and Dictated by Reji Palomo III, MD Transcribed by Marie Santiago Authenticated and [facility]
--- NOTE | 2023-05-18 08:30 | US_ITS ---
FINAL REPORT CLINICAL HISTORY: I65.29 - Occlusion and stenosis of unspecified carotid ar... FINDINGS: RENAL ULTRASOUND Ultrasound images of the kidneys were obtained. Limited images of the liver parenchyma demonstrates normal echogenicity. The right kidney measures 11.3 cm in length. The left kidney measures 10.3 cm in length. Echogenicity is normal. There is no renal stone, mass, or hydronephrosis. IMPRESSION: Normal renal ultrasound. Reviewed, Interpreted and Dictated by eRji Palomo III, MD Transcribed by Marie Santiago Authenticated and [facility]
== END 2023-05-18 23:59 | disposition home or self-care (01) ==
LOC: RT 07:53
PROVIDERS: Visit Provider Nurse Practitioner Family
DX: I10 Essential (primary) hypertension (principal); R07.89 Other chest pain; I65.29 Occlusion and stenosis of unspecified carotid artery; R00.2 Palpitations; E11.649 Type 2 diabetes mellitus with hypoglycemia without coma; J43.8 Other emphysema; E78.2 Mixed hyperlipidemia; Z87.891 Personal history of nicotine dependence
CPT/HCPCS: 76770; 93976

== ENCOUNTER 2023-11-13 13:03 | Emergency (ER) | payer MEDICARE, MEDICAID, SELFPAY ==
[2023-11-13 13:12] VITALS: BP 138/78; PULSE 78; RESP 16; TEMP 36.8; O2SAT 95; BMI 29.1
--- NOTE | 2023-11-13 13:16 | ED_ITS ---
Discharge Plan Disposition Patient Disposition: Home, Self-Care Condition: Good Prescriptions Prescriptions: New benzonatate 100 mg capsule 100 mg PO TID PRN (Reason: cough) Qty: 30 0RF azithromycin [Zithromax Z-Ty] 250 mg tablet See Rx Instructions .ROUTE .COMPLEX 5 Days Qty: 6 0RF Rx Instructions: For 250 mg dose pack: take 500 mg today (day 1), then 250 mg for 4 days (days 2-5) guaifenesin [Mucinex] 600 mg tablet extended release 12hr 600 - 1,200 mg PO BID PRN (Reason: cough) Qty: 20 0RF No Action Repatha SureClick 140 mg/mL pen injector 140 mg SQ Q2W Qty: 2 12RF oxycodone 10 mg tablet 10 mg PO Q8H PRN (Reason: pain) Qty: 90 0RF ondansetron HCl 4 mg tablet 4 mg PO TID Qty: 60 0RF Brilinta 90 mg tablet 90 mg PO BID Qty: 60 5RF metoprolol tartrate 25 mg tablet PO Patient Comments: TAKE 0.5 TABLETS BY MOUTH 2 TIMES DAILY. diazepam [Valium] 5 mg tablet 5 mg PO BID PRN (Reason: anxiety) Qty: 60 0RF sertraline 100 mg tablet See Rx Instructions .ROUTE .COMPLEX Qty: 180 3RF Dose Instruction: TAKE 2 TABLETS BY MOUTH EVERY DAY Rx Instructions: TAKE 2 TABLETS BY MOUTH EVERY DAY albuterol sulfate 90 mcg/actuation HFA aerosol inhaler 2 puff inhalation Q8H PRN (Reason: shortness of breath or wheezing) Qty: 8.5 2RF omeprazole 40 mg capsule,delayed release(DR/EC) See Rx Instructions .ROUTE .COMPLEX Qty: 90 0RF Dose Instruction: TAKE ONE CAPSULE BY MOUTH EVERY DAY Rx Instructions: TAKE ONE CAPSULE BY MOUTH EVERY DAY gabapentin 800 mg tablet 800 mg PO TID Qty: 90 3RF Referrals Follow up/Referrals: Bolivar Dumont MD [Primary Care Provider] - See instructions Activity Restrictions/Add. Instructions Additional Instructions/Restrictions: * Start antibiotic today. Be sure to complete entire prescription even if feeling better * Monitor temp. Tylenol every 4 hours as needed and / or ibuprofen every 6 hours as needed ( As long as your primary care physician has told you that it ok to take both. For fever/aches/pains ER if no less than 101 despite Tylenol or Motrin * Humidifier/vaporizer or hot steamy shower * Mucinex during the day for your cough and cough suppressant only at nigh t. Be sure to drink lots of water. *Tessalon Perles will not cause drowsiness but use at bedtime to help stop cough so that you may get some rest. Follow up IMMEDIATELY for new or worsening of symptoms OR no noticeable improvement over the next 48-72 hours. 911 immediately for any life threatening symptoms such as chest pain or difficulty breathing Clinical Impressions Clinical Impression: Bronchitis, Sinusitis Instructions Patient Instructions: DI for Sinusitis, Acute Bronchitis Print Language Print Language: Kyrgyz Discharge ED Provider: Alice Traore [facility] General Stated complaint: cough, chest congestion Mode of Arrival: Ambulatory Source of Information: Patient Limitations: No Limitations Time Seen by Provider: 11/13/23 13:16 Description of Symptoms (Recalled from Triage Doc. by RN): Patient reports chest congestion and cough. HEENT Symptoms (Recalled from RN notes): Yes Resp Symptoms (Recalled from RN notes): No Skin Symptoms (Recalled from RN notes): No MS Symptoms (Recalled from RN notes): No Functional Status (Recalled from RN notes): wnl History of Present Illness Provider Complaint: Patient states that she is a former smoker and has hx of COPD States that she thinks she has a sinus infection that is trying to move into her chest like it has before and she ended up with bronchitis States she has been having sinus congestion and drainage for over a week and now her cough is sounding more wet and feels like she is getting congested in her chest Related Data Home Medications ?Medication ?Instructions ?Recorded ?Confirmed metoprolol tartrate 25 mg tablet mg PO 07/24/23 10/26/23 Previous Rx's ?Medication ?Instructions ?Recorded albuterol sulfate 90 mcg/actuation 2 puff inhalation Q8H PRN 12/06/21 aerosol inhaler shortness of breath or wheezing #8.5 grams omeprazole 40 mg capsule,delayed See Rx Instructions .Route 08/21/23 release .COMPLEX #90 caps diazepam 5 mg tablet (Valium) 5 mg PO BID PRN anxiety #60 tabs 09/21/23 sertraline 100 mg tablet See Rx Instructions .Route 09/21/23 .COMPLEX #180 tabs evolocumab 140 mg/mL subcutaneous 140 mg SQ Q2W #2 mL 10/26/23 pen injector (Lisa Farrell) ondansetron HCl 4 mg tablet 4 mg PO TID #60 tabs 10/26/23 oxycodone 10 mg tablet 10 mg PO Q8H PRN pain #90 tabs 10/26/23 ticagrelor 90 mg tablet (Brilinta) 90 mg PO BID #60 tabs 10/26/23 gabapentin 800 mg tablet 800 mg PO TID #90 tabs 10/28/23 azithromycin 250 mg tablet See Rx Instructions PO .COMPLEX 5 11/13/23 (Zithromax Z-Ty) days #6 tabs benzonatate 100 mg capsule 100 mg PO TID PRN cough #30 caps 11/13/23 guaifenesin 600 mg tablet, 600 - 1,200 mg (1 - 2 x 600 mg) PO 11/13/23 extended release 12 hr (Mucinex) BID PRN cough #20 tabs Allergies Allergy/AdvReac Type Severity Reaction Status Date / Time aspirin [ASPIRIN] Allergy Unknown SWELLING Verified 10/26/23 09:53 clopidogrel [From PLAVIX] Allergy Unknown UNKNOWN Verified 10/26/23 09:53 diphenhydramine Allergy Unknown UNKNOWN Verified 10/26/23 09:53 [From BENADRYL] Penicillins [PENICILLINS] Allergy Unknown SWELLING Verified 10/26/23 09:53 dexcom sensor Allergy Severe skin Uncoded 10/26/23 09:53 infection lisinopril Allergy Cough Uncoded 10/26/23 09:53 losartan Allergy Cough Uncoded 10/26/23 09:53 Worker's Comp Is this a Worker's Comp case?: No [facility] Disclaimer: The information contained in this section may have been updated after the patient was seen, as this information can be updated by other users. Medical History Atypical chest pain Diabetes type 2, uncontrolled The last hemoglobin A1c we got in December was excellent at 6.1. She is to continue doing what she is doing. Bilateral carotid artery stenosis HTN (hypertension) AAA (abdominal aortic aneurysm) Aneurysm Obese Anxiety Bipolar 1 disorder COPD (chronic obstructive pulmonary disease) Vitamin D deficiency Will send in a vitamin D supplement today. Hyperlipidemia Cholesterol panel in December revealed a triglycerides of 230 total cholesterol 273 LDL 165 and an HDL of 45. Will place her on a fibrate as she cannot tolerate statins. Also an omega-3 fatty acid. Surgical History History of left-sided carotid endarterectomy Hx of tubal ligation History of cholecystectomy Family History Other COPD (chronic obstructive pulmonary disease) Cancer Diabetes Hyperlipidemia Kidney disease Thyroid disorder Social History Smoking Status: Former smoker smoking status stop date: PT hasn't smoked since first part of 2023 alcohol intake: current alcohol intake frequency: holidays/special occasions only substance use type: denies use current occupational status: disabled Travel in the last 8 weeks: None household members: children housing: house ROS Obtained: Yes All systems reviewed & no additional complaints except as documented and Yes Systems reviewed as appropriate & no additional complaints except as documented Constitutional Constitutional: Reports system reviewed and no additional complaints, except as documented and Reports as per HPI ENT Ears, Nose, Mouth, and Throat: Reports system reviewed and no additional complaints, except as documented, Reports as per HPI, Reports sinus pain and Reports sinus pressure Cardiovascular Cardiovascular: Reports system reviewed and no additional complaints, except as documented and Reports as per HPI Respiratory Respiratory: Reports system reviewed and no additional complaints, except as documented, Reports as per HPI, Denies shortness of breath, Reports chest congestion and Reports cough Gastrointestinal Gastrointestingal: Reports system reviewed and no additional complaints, except as documented and as per HPI Physical Exam General General appearance: alert and in no apparent distress ENT ENT exam: Present mucous membranes moist Expanded ENT Exam Nose exam: Present sinus tenderness Throat exam: Present other (PND noted) Respiratory Respiratory exam: Present normal lung sounds bilaterally; Absent respiratory distress or wheezes Cardiovascular Cardiovascular exam: Present regular rate, normal rhythm and normal heart sounds Neurological Exam Neurological exam: Present alert, oriented X3 and normal gait Medical Decision Making Medical Records Screening: Per USPSTF and CDC recommendations, given the prevalence of disease in our region, it is our hospital?s policy to screen for HIV and viral Hepatitis for all patients aged 18 and over and those with ongoing risk factors. [place] Inquiry Pt receiving controlled substance: No [place] was queried for this patient: No Vital Signs: 11/13/23 13:12 Temperature 98.2 F Temperature Source Oral Pulse Rate [Radial] 78 Respiratory Rate 16 Blood Pressure [Right Arm] 138/78 Blood Pressure Mean [Right Arm] 98 Blood Pressure Source [Right Arm] Automatic Cuff Blood Pressure Position [Right Arm] Sitting 02 Sat by Pulse Oximetry 95 Oxygen Delivery Method Room Air Medical Decision Narrative: medications discussed with pharmacy
[2023-11-13 13:32] VITALS: BP 138/78; PULSE 78; RESP 16; TEMP 36.8; O2SAT 95
== END 2023-11-13 13:33 | disposition home or self-care (01) ==
PROVIDERS: Emergency Provider Nurse Practitioner; PCP Family Medicine
DX: J01.90 Acute sinusitis, unspecified (principal)
CPT/HCPCS: 99212; G0381

== ENCOUNTER 2024-01-18 11:50 | Outpatient (CLI) | payer MEDICARE, MEDICAID, SELFPAY ==
[2024-01-18 17:48] LABS: Adenovirus,PCR Not Detected (NotDetected); Bordetella Pertussis Not Detected (NotDetected); Chlamydophila Pneumoniae, PCR Not Detected (NotDetected); Coronavirus 19, PCR Not Detected (NotDetected); Coronavirus 229E Not Detected (NotDetected); Coronavirus NL63 Not Detected (NotDetected); Coronavirus OC43 Not Detected (NotDetected); Coronovirus HKU1,PCR Not Detected (NotDetected); Human Metapneumovirus Not Detected (NotDetected); Influenza A, PCR Not Detected (NotDetected); Influenza AH1, 2009 Not Detected (NotDetected); Influenza AH1, PCR Not Detected (NotDetected); Influenza AH3,PCR Not Detected (NotDetected); Influenza B, PCR Not Detected (NotDetected); Mycoplasma Pneumoniae, PCR Not Detected (NotDetected); Parainfluenza 1, PCR Not Detected (NotDetected); Parainfluenza 2, PCR Not Detected (NotDetected); Parainfluenza 3, PCR Not Detected (NotDetected); Parainfluenza 4, PCR Not Detected (NotDetected); Respiratory Syncytial Virus Not Detected (NotDetected); Rhinovirus/Enterovirus Not Detected (NotDetected)
== END 2024-01-18 23:59 | disposition home or self-care (01) ==
LOC: LAB.DROPOF 01-20 09:30
PROVIDERS: PCP Family Medicine; Visit Provider Family Medicine
DX: J32.9 Chronic sinusitis, unspecified (principal); J20.9 Acute bronchitis, unspecified; J44.9 Chronic obstructive pulmonary disease, unspecified; R09.89 Other specified symptoms and signs involving the circulatory and respiratory systems
CPT/HCPCS: 87633

== ENCOUNTER 2024-01-25 11:56 | Outpatient (CLI) | payer MEDICARE, MEDICAID, SELFPAY ==
--- NOTE | 2024-01-25 12:05 | XR_ITS ---
FINAL REPORT TECHNIQUE: 2 view chest CLINICAL HISTORY: Fall, Chest Pain COMPARISON: None FINDINGS: No acute pulmonary opacities present. There is no evidence of effusion or pneumothorax. There is evidence of prior median sternotomy, presumably from CABG. Otherwise mediastinum is unremarkable. Changes of emphysema are present. The heart is normal in size. IMPRESSION: Unremarkable chest, status post CABG. Reviewed, Interpreted and Dictated by Oscar Lyon MD Transcribed by Concha Esteban Authenticated and [facility]
--- NOTE | 2024-01-25 12:05 | XR_ITS ---
FINAL REPORT CLINICAL HISTORY: Fall, Breast Pain COMPARISON: None FINDINGS: LEFT RIBS: A single view of the chest with 3 views of the ribs were obtained. There is no acute cardiopulmonary process. No pneumothorax is identified. No displaced rib fracture identified. IMPRESSION: Unremarkable left rib series without evidence of acute bony abnormality or pneumothorax. Reviewed, Interpreted and Dictated by Oscar Lyon MD Transcribed by Concha Esteban Authenticated and [facility]
--- NOTE | 2024-01-25 12:05 | XR_ITS ---
FINAL REPORT CLINICAL HISTORY: Fall, Breast Pain FINDINGS: RIGHT RIBS: A single view of the chest with 3 views of the right ribs were obtained. There is no acute cardiopulmonary process. No pneumothorax is identified. No displaced rib fracture identified. IMPRESSION: No acute abnormality of the right ribs, without evidence of pneumothorax or displaced fracture. Reviewed, Interpreted and Dictated by Oscar Lyon MD Transcribed by Concha Esteban Authenticated and [facility]
== END 2024-01-25 23:59 | disposition home or self-care (01) ==
LOC: RAD 11:59
PROVIDERS: PCP Family Medicine; Visit Provider Family Medicine
DX: R07.9 Chest pain, unspecified (principal); N64.4 Mastodynia
CPT/HCPCS: 71046; 71100

== ENCOUNTER 2024-03-18 10:35 | Outpatient (CLI) | payer MEDICARE, MEDICAID, SELFPAY ==
[2024-03-18 19:50] LABS: Alanine Aminotransferase 17 U/L (12-78); Albumin Level 4.1 g/dl (3.5-5.0); Albumin/Globulin Ratio 1.5 (1.1-1.8); Alkaline Phosphatase 113 U/L (38-126); Anion Gap 17.5 mEq/L (5-15); Aspartate Amino Transferase 20 U/L (14-36); Bilirubin,Total 0.4 mg/dl (0.2-1.3); Blood Urea Nitrogen 11 mg/dl (7-17); Calcium 9.4 mg/dl (8.4-10.2); Carbon Dioxide 26 mmol/L (22.0-30.0); Chloride 104 mmol/L (98-107); Chol/HDL Ratio 2.6 (1-3.5); Cholesterol 116 mg/dl (140-200); Estimated Glomerular Filt Rate 100 ml/min (>60); GFR (African American) 121 ML/MIN (>60); Globulin 2.8 g/dL (1.3-3.2); Glucose 111 mg/dl (74-100); HDL Cholesterol 45 mg/dl (40-60); Potassium 4.5 mmoL/L (3.5-5.1); Sodium 143 mmol/L (136-145); Total Protein,Serum 6.9 g/dl (6.3-8.2); Triglycerides 144 mg/dl (30-150); VLDL Cholesterol 29 mg/dL (0-40)
[2024-03-18 20:21] LABS: Thyroid Stimulating Hormone 0.77 uIU/mL (0.465-4.68)
[2024-03-18 20:52] LABS: HIV Combo NEGATIVE (Negative)
[2024-03-18 20:59] LABS: Hepatitis C Ab Qual. W/ RFX NEGATIVE (Negative)
[2024-03-18 21:18] LABS: Direct LDL Cholesterol 39.6 mg/dL (100-129)
== END 2024-03-18 23:59 | disposition home or self-care (01) ==
LOC: LAB.DROPOF 03-19 11:03
PROVIDERS: PCP Family Medicine; Visit Provider Family Medicine
DX: I10 Essential (primary) hypertension (principal); Z79.899 Other long term (current) drug therapy; Z78.9 Other specified health status; Z95.1 Presence of aortocoronary bypass graft; Z72.0 Tobacco use; M54.50 Low back pain, unspecified; E11.9 Type 2 diabetes mellitus without complications; E66.9 Obesity, unspecified; Z68.28 Body mass index [BMI] 28.0-28.9, adult
CPT/HCPCS: 80053; 80061; 84443; 86803; 87389

== ENCOUNTER 2024-04-27 13:25 | Outpatient (CLI) | payer MEDICARE, MEDICAID, SELFPAY ==
--- NOTE | 2024-04-27 13:33 | MM_ITS ---
PROCEDURE INFORMATION: Exam: MG Bilateral Screening 3D Mammography Exam date and time: 04/27/2024 1:34 PM Age: 63 years old Clinical indication: Screening exam. TECHNIQUE: Imaging protocol: Bilateral Screening tomosynthesis and 2D mammography including computer-aided detection (CAD) when performed. COMPARISON: 1. MG MM DIG SCREENING MAMM BI W/CAD 08/13/2020 8:03 AM 2. MG SCBI MM Dig screening mamm BI w/CAD 12/11/2017 10:25 AM FINDINGS: MAMMOGRAPHY: Breast composition: There are scattered areas of fibroglandular density. Mass: No suspicious masses. Architectural distortion: None. Calcifications: No suspicious calcifications. Asymmetric density: None. Skin thickening: None. Axillary adenopathy: None. IMPRESSION: No mammographic evidence of malignancy. Annual screening is recommended unless otherwise clinically indicated. ASSESSMENT: BI-RADS Category 1: Negative.
== END 2024-04-27 23:59 | disposition home or self-care (01) ==
LOC: RAD 13:26
PROVIDERS: PCP Family Medicine; Visit Provider Family Medicine
DX: Z12.31 Encounter for screening mammogram for malignant neoplasm of breast (principal)
CPT/HCPCS: 77063; 77067

== ENCOUNTER 2024-11-03 09:16 | Outpatient (CLI) | payer MEDICARE, SELFPAY ==
--- NOTE | 2024-11-03 | CT_ITS ---
FINAL REPORT TECHNIQUE: Thin section axial images were obtained through the lungs using a low-dose technique per lung cancer screening protocol. Reconstruction images were obtained using the axial data. Exam was performed using dose reduction technique. This study was performed with techniques to keep radiation doses as low as reasonably achievable (ALARA). Individualized dose reduction techniques using automated exposure control or adjustment of mA and/or kV according to the patient's size were employed. CLINICAL HISTORY: HX OF NICOTINE current smoker 1ppd x54 years COMPARISON: None FINDINGS: CTDLvol: 2.90 DLP: 100.03 Current smoker 54 pack year history Lungs: Changes of emphysema are present. There is an irregular nodule in the right upper lobe best seen on image #13 of series 4, that measures 10 mm in the axial plane and 15 mm and coronal imaging. More inferior in the right upper lobe there is a spiculated nodular density measuring 27 mm in the axial plane and 18 mm in the craniocaudal plane, best seen on image #22 of series 4. Multiple Granulomas are noted consistent with prior granulomatous disease. Lymph nodes: There is a mildly prominent right paratracheal node. No hilar or axillary nodes are identified. Mediastinum: Heart size is normal. Prominent coronary artery calcifications are present. Pleura/pericardium: No pleural or pericardial effusion. Other: No acute abnormality in the upper abdomen. IMPRESSION: 2 spiculated masses are present in the right upper lobe, the largest measuring 27 x 18 mm in size. Lung RADS: 4B Recommendation: Recommend PET/CT for further evaluation. Reviewed, Interpreted and Dictated by Arabella Madrid MD Transcribed by Concha Esteban Authenticated and [facility]
--- OUTSIDE RECORDS SUMMARY | 2024-11-03 09:18 | XMS_ITS | Clinical Summary ---
Author Organization [facility] Address [address] [place] [id number] Care Team Providers Care Energy Rater Name Role Phone Bolivar Dumont MD Primary Care Provider [phone] Allergies Active Allergy Reactions Criticality Noted Date Comments Aspirin Swelling High 06/08/2023 Diphenhydramine Itching Medium 06/08/2023 Penicillins Swelling High 06/08/2023 Clopidogrel Swelling High 06/08/2023 Social History Tobacco Use Types Packs/Day Years Used Date Smoking Tobacco: Never Assessed Comments Unknown Sex and Gender Information Value Date Recorded Sex Assigned at Not on file Legal Sex Female 7:32 PM EDT Gender Identity Not on file Sexual Orientation Not on file Last Filed Vital Signs Vital Sign Reading Time Taken Comments Blood Pressure 113/63 06/09/2023 10:55 AM EDT Pulse 60 06/09/2023 10:55 AM EDT Temperature - - Respiratory Rate 20 06/09/2023 10:55 AM EDT Oxygen Saturation 93% 06/09/2023 10:25 AM EDT Inhaled Oxygen Concentration - - Weight 80.7 kg (178 lb) 06/09/2023 10:25 AM EDT Height 165.1 cm (5' 5 ) 06/09/2023 10:25 AM EDT Body Mass Index 29.62 06/09/2023 10:25 AM EDT Plan of Treatment Health Maintenance Due Date Last Done Comments [facility]-Bone Density Scan 1958 [facility]-Depression Screening 1958 [facility]-Hepatitis C Screening 1958 [facility]-Medicare Annual Wellness (AWV) 1958 [facility]-/Child/Adol SDOH Screenings 1958 [facility]-Obesity Intervention 1964 [facility]- SDOH Screenings 1976 [facility]-Adult SDOH Screenings 1976 [facility]-DTaP,Tdap,and Td Vaccine s (1 - Tdap) 1977 CT Colonography 10/29/2003 Colonoscopy 10/29/2003 FIT-DNA 10/29/2003 FIT 10/29/2003 FOBT 10/29/2003 Sigmoidoscopy 10/29/2003 [facility]-Colorectal Cancer Screening 10/29/2003 [facility]-Breast Cancer Screening 2008 [facility]-Zoster Vaccines (1 of 2) 2008 [facility]-Pneumococcal Vaccine: 50 + Years (2 of 2 - PCV20 or PCV21) 03/27/2016 03/27/2015 [id number] Vaccine (4 - season) 2024 12/18/2020, 05/07/2020, 04/09/2020 [facility]-Influenza Vaccine (#1) 10/10/202411/10, 11/20/2016, 11/21/2015 [facility]-RSV Vaccine: 60+ Years o r (1 - 1-dose 75+ series) 2033 HPV Vaccines Aged Out No longer eligi ble based on patient's age to complete this topic [facility]-HIB Vaccines Aged Out No longer e ligible based on patient's age to complete this topic [facility]-Hepatitis A Vaccines Aged Out No longer eligible based on patient's age to complete this topic [facility]-IPV Vaccines Aged Out No longer e ligible based on patient's age to complete this topic [facility]-Rotavirus Vaccines Aged Out No lo nger eligible based on patient's age to complete this topic Insurance [facility] MEDICARE Care Teams Energy Rater Relationship Specialty Start Date End Date Bolivar Dumont MD PCP - General 06/09/23
--- OUTSIDE RECORDS SUMMARY | 2024-11-03 09:18 | XMS_ITS | Clinical Summary ---
Author Organization [employer] ([place], [place], [place], [place]) Address [address] [place] [address] Care Team Providers Care Fish Net Maker Name Role Phone Denice Chacon MD Unavailable [phone] Bolivar Dumont MD Primary Care Provider [phone] Elinor Chairez PA-C Unavailable [phone] Cheikh Amin MD Unavailable [phone] Allergies Active Allergy Reactions Criticality Noted Date Comments Aspirin Hives,Shortness Of Breath High 06/01/2023 Diphenhydramine Hcl 06/01/2023 Nsaids (Non-Steroidal Anti-Inflammatory Drug) 06/01/2023 Penicillin 06/01/2023 Clopidogrel Hives,Shortness Of Breath High 06/01/2023 Medications gabapentin (NEURONTIN) 800 MG tablet Take 1 tablet (800 mg total) by mouth 3 (three) times daily. Active omeprazole (PriLOSEC) 40 MG capsule Take 1 capsule (40 mg total) by mouth daily. Active oxyCODONE (OXY-IR) 10 mg tablet Take 1 tablet (10 mg total) by mouth 3 (three) times daily as needed for pain. Active sertraline (ZOLOFT) 100 MG tablet Take 2 tablets (200 mg total) by mouth daily. Active atorvastatin (LIPITOR) 80 MG tablet Take 1 tablet (80 mg total) by mouth nightly. Active metFORMIN (GLUCOPHAGE) 500 MG tablet Take 1 tablet (500 mg total) by mouth 2 (two) times daily with breakfast and dinner Look-alike/S ound-alike medication. Active metoprolol tartrate (LOPRESSOR) 25 MG tablet TAKE 0.5 TABLETS BY MOUTH 2 TIMES DAILY. 90 tablet 3 Active ticagrelor (BRILINTA) 90 mg tab tabletIndication s:S/P CABG (coronary artery bypass graft),Stenosis of carotid artery, unspecified laterality,Statu s post arterial stent Take 1 tablet (90 mg total) by mouth 2 (two) times daily. 180 tablet 3 4 10/20/19 25 Active Problems Problem Noted Date Diagnosed Date S/P CABG x 2 07/15/2023 AAA (abdominal aortic aneurysm) 07/10/2023 07/10/2023 Bilateral carotid artery stenosis 07/10/2023 07/10/2023 COPD (chronic obstructive pulmonary disease) 07/10/2023 Diabetes 07/10/2023 07/10/2023 Hyperlipidemia 07/10/2023 07/10/2023 Lumbar pain 07/10/2023 07/10/2023 Obesity (BMI 30.0-34.9) 07/10/2023 07/10/19 24 Overweight 07/10/2023 07/10/2023 Stenosis of carotid artery 07/10/202307/09 Tobacco use 07/10/2023 07/10/2023 Uncontrolled type 2 diabetes mellitus 07/10/2023 07/10/2023 HTN (hypertension) 07/10/2023 07/10/2023 Primary hypertension 06/18/2023 Resolved Problems Problem Noted Date Diagnosed Date Resolved Date Coronary artery disease of n ative artery of [place] heart with stable angina pectoris 06/18/2023 07/10/2023 Family History Medical History Relation Name Comments No Known Problem Father Arrhythmia Mother Relation Name Status Comments Father Mother Social History Tobacco Use Types Packs/Day Years Used Date Smoking Tobacco: Former Cigarettes Smokeless Tobacco: Never Tobacco Cessation:Counseling Given: Not Answered Alcohol Use Standard Drinks/Week Comments Yes 0 (1 standard drink = 0.6 oz pur e alcohol) THREE TIMES PER YEAR Utilities Answer Date Recorded In the past 12 months, has t he [employer], gas, oil, or water company threatened to shut off services in your home? No 07/16/2023 Food Insecurity Answer Date Recorded Within the past 12 months, y ou worried that your food would run out before you got money to buy more. Never true 07/16/2023 Within the past 12 months, t he food you bought just didn't last and you didn't have money to get more. Never true 07/16/2023 Transportation Needs Answer Date Record ed In the past 12 months, has l ack of reliable transportation kept you from medical appointments, meetings, work or from getting things needed for daily living? No 07/16/2023 Financial Resource Strain Answer Date R ecorded How hard is it for you to pa y for the very basics like food, housing, medical care, and heating? Would you say it is: Not hard at all 07/16/2023 Employment Answer Date Recorded Do you want help finding or keeping work or a job? I do not need or want help 07/16/2023 Family and Community Support Answer Raad e Recorded If for any reason you need h elp with day-to-day activities such as bathing, preparing meals, shopping, managing finances, etc., do you get the help you need? I get all the help I need 07/16/2023 Feeling Lonely or Isolated 0 07/15 Educational Attainment Answer Date Castillo rded Do you speak a language other than [place] at [facility]? No 07/16/2023 Do you want help with school or training? For example, starting or completing job training or getting a high school diploma, GED or equivalent. No 07/16/2023 Physical Activity Answer Date Recorded Number of minutes of exercise per week 0 07/16/2023 Substance Use Answer Date Recorded How many times in the past y ear have you used prescription drugs for non-medical reasons? Never 07/16/2023 How many times in the past year have you used [place] legal drugs? Never 07/16/2023 Comments No Sex and Gender Information Value Date Recorded Sex Assigned at Female 06/18/2023 6:09 AM CDT Legal Sex Female 7:28 PM CDT Gender Identity Female 06/18/2023 6:09 AM CDT Sexual Orientation Straight 06/18/2023 6: 09 AM CDT Last Filed Vital Signs Vital Sign Reading Time Taken Comments Blood Pressure 145/92 08/04/2023 1:39 PM EDT Pulse 89 08/04/2023 1:39 PM EDT Temperature 36.6 C (97.8 F) 07/19/2023 8:19 AM EDT Respiratory Rate 20 07/16/2023 4:15 PM EDT Oxygen Saturation 94% 08/04/2023 1:39 PM EDT Inhaled Oxygen Concentration 50% 07/15/2023 6 :30 PM EDT Weight 78.9 kg (174 lb) 08/04/2023 1:39 PM EDT Height 165.1 cm (5' 5 ) 08/04/2023 1:39 PM EDT Body Mass Index 28.96 08/04/2023 1:39 PM EDT Plan of Treatment Health Maintenance Due Date Last Done Comments CT Colonography 1958 Colonoscopy 1958 Colorectal Cancer Screening 1958 DXA SCAN 1958 Diabetic Kidney Health Evalu ation (KED) 1958 FOBT/FIT 1958 Fit-DNA (Cologuard) 1958 Sigmoidoscopy 1958 Diabetic Eye Exam 1968 Depression Screening (12+) 1970 Hepatitis C Screening 1976 DTAP/TDAP/TD VACCINES (1 - Tdap) 1977 Breast Cancer Screening 1998 Shingles Vaccine (Zoster) (1 of 2) 2008 Pneumococcal 50+ years (2 of 2 - PPSV23, PCV20, or PCV21) 05/22/2015 03/27/2015 Respiratory Syncytial Virus (RSV) Adult or (1 - Risk 60-74 years 1-dose series) 2018 Hemoglobin A1C 01/09/2024 07/10/2023 Falls Risk Screening 02/10/2024 Medicare Initial AWV G0438 02/11/2024 Tobacco Cessation Counseling and Screening (12+) 08/03/2024 08/04/2023 COVID-19 VACCINE (4 - 2024- season) 2024 12/18/2020, 05/07/2020, 04/09/2020 Influenza Vaccine (#1) 2024 Medical Devices Implanted Type Area Burring Wheel Operator Device Identifier Shelf Expiration Date Model / Serial / Lot Marker Grdewey Rng Cor By [id number] - [id number] Implanted:Qty: 1 on 07/15/2023 by Cheikh Amin MD at [facility] N/A: Aorta PRECIOUS MED PRDT 04/08/2025 [id number] / / [id number] Procedures Procedure Name Priority Date/Time Associated Diagnosis Comments HEMOGLOBIN A1C Routine 07/10/2023 1:23 PM EDT Preop testing from Last 3 Months or Most Recently Relevant to Health Maintenance Results * Hemoglobin A1c (07/10/2023 1:23 PM EDT) Hemoglobin A1C 6.8 % 07/10/2023 6:47 PM EDT [facility] Comment: Hemoglobin A1C levels are related to mean glucose during the preceding 2-3 months. Less than 7% demonstrates glycemic control in diabetic patients. Hemoglobin AlC % Suggested Diagnosis > or = 6.5 Diabetic 5.7 - 6.4 Prediabetic <5.7 Non-diabetic eAVG Glucose 148.46 mg/dL 07/10/2023 6:47 PM EDT [facility] Blood Venipuncture / Unknown 07/10/2023 1:23 PM EDT 07/10/2023 2:32 PM EDT Cheikh Amin MD LAB BLOOD ORDERABLES Saba estrada Result Performing Organization Address [facility]/State/ZIP Co de Phone Number [facility] [address] [phone] from Last 3 Months or Most Recently Relevant to Health Maintenance Insurance [employer] [facility] [employer] ACCESS O MAP Advance Directives For more information, please contact: [phone] * Full Code (Latest Code Status on File) Date Activated Date Inactivated Comments 06/16/2023 11:52 AM 06/17/2023 4:28 AM * Full Code Date Activated Date Inactivated Comments 06/16/2023 8:56 AM 06/16/2023 11:52 AM Care Teams Fish Net Maker Relationship Specialty Start Date End Date Bolivar Dumont MD [address] [place] [address] PCP - General Family Medicine 06/18/23 Denice Chacon MD [address] [facility] [address] [place] [address] Interventional Cardiology 06/02/23 Elinor Chairez, PA-C [address] [facility] [address] [place], [place] [id number] Cardiology 06/18/23 [place] [address] [place] [address] [address] [place] [address] Surgeon Cardiothoracic Surgery 07/27/23
--- OUTSIDE RECORDS SUMMARY | 2024-11-03 09:18 | XMS_ITS | Referral Summary ---
Author Organization [facility] ([place], [place], [place], [place]) Address [address] [place] [address] Care Team Providers Care Public Safety Telecommunicator Name Role Phone Denice Chacon MD Unavailable [phone] Bolivar Dumont MD Primary Care Provider [phone] Elinor Chairez PA-C Unavailable [phone] Cheikh Amin MD Unavailable [phone] Allergies Active Allergy Reactions Criticality Noted Date [...] artery disease of n ative artery of [place] heart with stable angina pectoris 06/18/2023 07/10/2023 Social History Tobacco Use Types Packs/Day Years Used Date Smoking Tobacco: Former Cigarettes Smokeless Tobacco: Never Tobacco Cessation:Counseling Given: Not Answered Alcohol Use Standard Drinks/Week Comments Yes 0 (1 standard drink = 0.6 oz pur e alcohol) THREE TIMES PER YEAR Utilities Answer Date Recorded In the past 12 months, has t he [employer], gas, oil, or water company threatened to [...] Do you speak a language other than French at [facility]? No 07/16/2023 Do you want help [...] Mass Index 28.96 08/04/2023 1:39 PM EDT Functional Status * Are you deaf or do you have serious difficulty hearing? Answer Date of Assessment Author No 07/19/2023 10:25 AM Reji Lyn RN * Are you blind or do you have serious difficulty seeing, even when wearing glasses? Answer Date of Assessment Author No 07/19/2023 10:25 AM Reji Lyn RN * Do you have serious difficulty walking or climbing stairs? Answer Date of Assessment Author No 07/19/2023 10:25 AM Reji Lyn RN * Do you have serious difficulty dressing or bathing? Answer Date of Assessment Author No 07/19/2023 10:25 AM Reji Lyn RN * Because of a physical, mental, or emotional condition, do you have serious difficulty doing errandsalone such as visiting the doctor? Answer Date of Assessment Author No 07/19/2023 10:25 AM Reji Lyn RN Mental Status * Because of a physical, mental, or emotional condition, do you have serious difficulty concentrating, remembering, or making decisions? (5 years old or older) Answer Entry Date Author No 07/19/2023 10:25 AM Reji Lyn RN Plan of Treatment Not on file Medical Devices Implanted Type Area Embedded Software Developer Device Identifier Shelf Expiration Date Model / Serial / Lot Marker Grft Rng Cor Byps [id number] - [id number] Implanted:Qty: 1 on 07/15/2023 by Cheikh Amin MD at [facility] N/A: Aorta PRECIOUS MED PRDT 04/08/2025 [id number] / / [id number] Procedures Procedure Name Priority Date/Time Associated Diagnosis Comments HEMOGLOBIN A1C Routine 07/10/2023 1:23 PM EDT Preop testing from Last 3 Months or Most Recently Relevant to Health Maintenance Results * Hemoglobin A1c (07/10/2023 1:23 PM EDT) Hemoglobin A1C 6.8 % 07/10/2023 6:47 PM EDT [facility] Comment: Hemoglobin A1C levels are related to mean glucose during the preceding 2-3 months. Less than 7% demonstrates glycemic control in diabetic patients. Hemoglobin AlC % Suggested Diagnosis > or = 6.5 Diabetic 5.7 - 6.4 Prediabetic <5.7 Non-diabetic eAVG Glucose 148.46 mg/dL 07/10/2023 6:47 PM EDT [facility] Blood Venipuncture / Unknown 07/10/2023 1:23 PM EDT 07/10/2023 2:32 PM EDT Cheikh Amin MD LAB BLOOD ORDERABLES Saba estrada Result [facility] [address] [place] [id number] [phone] from Last 3 Months or Most Recently Relevant to Health Maintenance Insurance [facility] ACCESS HMO MAP Advance Directives For more information, please contact: [phone] * Full Code (Latest Code Status on File) Date Activated Date Inactivated Comments 06/16/2023 11:52 AM 06/17/2023 4:28 AM * Full Code Date Activated Date Inactivated Comments 06/16/2023 8:56 AM 06/16/2023 11:52 AM Care Teams Public Safety Telecommunicator Relationship Specialty Start Date End Date Bolivar Dumont MD [address] [place] [address] PCP - General Family Medicine 06/18/23 [place] [address] [place] [address] [address] [place] [address] Interventional Cardiology 06/02/23 Elinor Chairez, PA-C [address] [place] [address] [address] [place], [place] [id number] Cardiology 06/18/23 [place] [address] [place] [address] [address] [place] [address] Surgeon Cardiothoracic Surgery 07/27/23
--- OUTSIDE RECORDS SUMMARY | 2024-11-03 09:18 | XMS_ITS | Encounter Summary ---
Author Organization [employer] ([place], [place], [place], [place]) Address [address] [place] [address] Care Team Providers Care Director Client Name Role Phone Denice Chacon MD Unavailable [phone] Bolivar Dumont MD Primary Care Provider [phone] Elinor Chairez PA-C Unavailable [phone] Cheikh Amin MD Unavailable [phone] Reason for Visit * Reason Comments Med Change Request Encounter Details Date Type Department Care Team (Late st Contact Info) Description 08/10/2023 [facility] Cardiothoracic Surgery - [facility] [address] [place] [address] [address] [facility] [place] [address] Thierno Gavin PA-C [address] [facility] [address] [place] [address] Social History Tobacco Use Types Packs/Day Years Used Date Smoking Tobacco: Former Cigarettes Smokeless Tobacco: Never Alcohol Use Standard Drinks/Week Comments Yes 0 (1 standard drink = 0.6 oz pur e alcohol) THREE TIMES PER YEAR Utilities Answer Date Recorded In the past 12 months, has t he electric, gas, oil, or water company threatened to [...] Do you speak a language other than [place]an at [facility]? No 07/16/2023 Do you want help with [...] Orientation Straight 06/18/2023 6: 09 AM CDT documented as of this encounter Functional Status * Are you deaf or do you have serious difficulty hearing? Answer Date of Assessment Author No 07/19/2023 10:25 AM CDT Reji Olson RN * Are you blind or do you have serious difficulty seeing, even when wearing glasses? Answer Date of Assessment Author No 07/19/2023 10:25 AM CDT Reji Olson RN * Do you have serious difficulty walking or climbing stairs? Answer Date of Assessment Author No 07/19/2023 10:25 AM GASTONT Reji Olson RN * Do you have serious difficulty dressing or bathing? Answer Date of Assessment Author No 07/19/2023 10:25 AM CDT Reji Olson RN * Because of a physical, mental, or emotional condition, do you have serious difficulty doing errandsalone such as visiting the doctor? Answer Date of Assessment Author No 07/19/2023 10:25 AM CDT Reji Olson RN documented as of this encounter Mental Status * Because of a physical, mental, or emotional condition, do you have serious difficulty concentrating, remembering, or making decisions? (5 years old or older) Answer Entry Date Author No 07/19/2023 10:25 AM GASTONT Reji Olson RN documented in this encounter Miscellaneous Notes * Telephone Encounter - Elinor Chairez PA-C - 08/11/2023 2:02 PM EDT Can you send this in for Oswaldo? Thx documented in this encounter Plan of Treatment Not on file documented as of this encounter Visit Diagnoses Not on filedocumented in this encounter Care Teams Director Client Relationship Specialty Start Date End Date Bolivar Dumont MD [address] [place] [address] PCP - General Family Medicine 06/18/23 [place] [address] [place] [address] [address] Interventional Cardiology 06/02/23 Elinor Chairez PA-C [address] [facility] [address] [address] Cardiology 06/18/23 Cheikh Amin MD [address] [place] [address] Surgeon Cardiothoracic Surgery 07/27/23 documented as of this encounter
== END 2024-11-03 23:59 | disposition home or self-care (01) ==
LOC: RAD 09:17
PROVIDERS: PCP Family Medicine; Visit Provider Family Medicine
DX: R91.8 Other nonspecific abnormal finding of lung field (principal); Z12.2 Encounter for screening for malignant neoplasm of respiratory organs; Z87.891 Personal history of nicotine dependence
CPT/HCPCS: 71271

== ENCOUNTER 2024-12-06 11:18 | Outpatient (CLI) | payer MEDICARE, SELFPAY ==
[2024-12-06 08:10] VITALS: BMI 28.3
--- OUTSIDE RECORDS SUMMARY | 2024-12-06 11:23 | XMS_ITS | Encounter Summary ---
Author Organization [employer] ([place], [place], [place], [place]) Address [address] [place] [address] Care Team Providers Care Hand Hardener Name Role Phone Denice Chacon MD Unavailable [phone] Bolivar Dumont MD Primary Care Provider [phone] Elinor Chairez PA-C Unavailable [phone] Cheikh Amin MD Unavailable [phone] Reason for Visit * Reason Comments Medication Refill Encounter Details Date Type Department Care Team (Late st Contact Info) Description 11/09/2024 Refill [facility] Cardiology [address] [place] [address] Denice Chacon MD [address] [facility] [address] [place] [address] S/P CABG (coronary artery bypass graft); Stenosis of carotid artery, unspecified laterality; Status post arterial stent Social History Tobacco Use Types Packs/Day Years [...] Do you speak a language other than Georgian at [facility]? No 07/16/2023 Do you want help with [...] No 07/19/2023 10:25 AM Reji Lyn RN documented as of this encounter Mental Status * Because of a physical, mental, or emotional condition, do you have serious difficulty concentrating, remembering, or making decisions? (5 years old or older) Answer Entry Date Author No 07/19/2023 10:25 AM Reji Lyn RN documented in this encounter Plan of Treatment Upcoming Encounters Date Type Department Care Team (Late st Contact Info) Description 12/19/2024 3:15 PM EST Office Visit [facility] Cardiology [address] [place] [address] Charlotte Espinal MD [address] [facility] [address] [place], [place] [id number] documented as of this encounter Visit Diagnoses Diagnosis S/P CABG (coronary artery bypass graft) Postsurgical aortocoronary bypass status Stenosis of carotid artery, unspecified laterality Status post arterial stent documented in this encounter Care Teams Hand Hardener Relationship Specialty Start Date End Date Bolivar Dumont MD [address] [place] [address] PCP - General Family Medicine 06/18/23 Denice Chacon MD [address] [facility] [address] [place], [place] [address] Interventional Cardiology 06/02/23 Elinor Chairez PA-C [address] [facility] [address] [place] [address] Cardiology 06/18/23 Cheikh Amin MD [address] [facility] [address] [place] [address] Surgeon Cardiothoracic Surgery 07/27/23 documented as of this encounter
--- OUTSIDE RECORDS SUMMARY | 2024-12-06 11:23 | XMS_ITS | Encounter Summary ---
Author Organization [employer] ([place], [place], [place], [place]) Address [address] [place] [address] Care Team Providers Care Receptionist Airline Lounge Name Role Phone Denice Chacon MD Unavailable [phone] Bolivar Dumont MD Primary Care Provider [phone] Elinor Chairez PA-C Unavailable [phone] Cheikh Amin MD Unavailable [phone] Reason for Visit * Reason Comments Med Change Request Encounter Details Date Type Department Care Team (Late st Contact Info) Description 08/10/2023 [facility] Cardiothoracic Surgery - [facility] [address] [place] [address] [address] [facility] [place] [address] Thierno Gavin PA-C [address] [facility] [address] [place] [address] Social History Tobacco Use Types Packs/Day Years [...] speak a language other than French at [facility]? No 07/16/2023 Do you want help [...] Description 12/19/2024 3:15 PM EST Office Visit [facility] Cardiology [address] [place] [address] [place] [address] [place] [address] [address] [place] [address] documented as of this encounter Visit Diagnoses Not on filedocumented in this encounter Care Teams Receptionist Airline Lounge Relationship Specialty Start Date End Date Bolivar Dumont MD [address] [place] [address] PCP - General Family Medicine 06/18/23 Denice Chacon MD [address] [facility] [address] [place], [place] [id number] Interventional Cardiology 06/02/23 Elinor Chairez, PAJerryC [address] [facility] [address] [place], [place] [address] Cardiology 06/18/23 [place] [address] [place] [address] [address] [place] [id number] Surgeon Cardiothoracic Surgery 07/27/23 documented as of this encounter
--- OUTSIDE RECORDS SUMMARY | 2024-12-06 11:24 | XMS_ITS | Clinical Summary ---
Author Organization [employer] ([place], [place], [place], [place]) Address [address] [place] [address] Care Team Providers Care Energy Project Manager Name Role Phone Denice Chacon MD Unavailable [phone] Bolivar Dumont MD Primary Care Provider [phone] Elinor Chairez PA-C Unavailable [phone] Cheikh Amin MD Unavailable [phone] Allergies Active Allergy Reactions Criticality Noted Date [...] MOUTH 2 TIMES DAILY. 90 tablet 3 08/11/19 24 Active ticagrelor (Brilinta) 90 mg tab tabletIndicatio ns:S/P CABG (coronary artery bypass graft),Stenosis of carotid artery, unspecified laterality,Stat us post arterial stent Take 1 tablet (90 mg total) by mouth 2 (two) times daily Please make and keep an appointment for refills.. 120 tablet 11/10/19 25 Active ticagrelor (BRILINTA) 90 mg tab tabletIndicatio ns:S/P CABG (coronary artery bypass graft),Stenosis of carotid artery, unspecified laterality,Stat us post arterial stent Take 1 tablet (90 mg total) by mouth 2 (two) times daily. 180 tablet 3 10/20/19 24 025 Discontinued Active Problems Problem Noted Date Diagnosed Date [...] artery disease of n ative artery of [place] heart with stable angina pectoris 06/18/2023 07/10/2023 Encounters Date Type Department Care Team Description 11/09/2024 Refill [facility] Cardiology [address] [place] [address] Denice Chacon MD S/P CABG (coronary artery bypass graft); Stenosis of carotid artery, unspecified laterality; Status post arterial stent from Last 3 Months Family History Medical History Relation Name Comments [...] Do you speak a language other than Hungarian at ho [facility]? No 07/16/2023 Do you want help with [...] 08/04/2023 1:39 PM EDT Plan of Treatment Upcoming Encounters Date Type Department Care Team (Late st Contact Info) Description 12/19/2024 3:15 PM EST Office Visit [facility] Cardiology [address] [place] [address] [place] [address] [place] [address] [address] [place] [address] Health Maintenance Due Date Last Done Comments [...] and Screening (12+) 08/03/2024 08/04/2023 COVID-19 VACCINE ( season) 2024 12/18/2020, 05/07/2020, 04/09/2020 Influenza Vaccine (#1) 2024 Medical Devices Implanted Type Area Bellows Charger Assembler Device Identifier Shelf Expiration Date Model / Serial / [place] [id number] - [id number] Implanted:Qty: 1 on 07/15/2023 by [facility] at [facility] N/A: Aorta PRECIOUS MED PRDT 04/08/2025 [id number] / / [id number] Procedures Procedure Name Priority Date/Time Associated Diagnosis Comments HEMOGLOBIN A1C Routine 07/10/2023 1:23 PM EDT Preop testing from Last 3 Months or Most Recently Relevant to Health Maintenance Results * Hemoglobin A1c (07/10/2023 1:23 PM EDT) Hemoglobin A1C 6.8 % 07/10/2023 6:47 PM EDT [facility] Comment: Hemoglobin A1C levels are related to mean glucose during the preceding 2-3 months. Less than 7% demonstrates glycemic control in diabetic patients. Hemoglobin AlC % Suggested Diagnosis > or = 6.5 Diabetic 5.7 - 6.4 Prediabetic <5.7 Non-diabetic eAVG Glucose 148.46 mg/dL 07/10/2023 6:47 PM EDT [facility] Blood Venipuncture / Unknown 07/10/2023 1:23 PM EDT 07/10/2023 2:32 PM EDT Cheikh Amin MD LAB BLOOD ORDERABLES Saba estrada Result [facility] [address] [phone] from Last 3 Months or Most Recently Relevant to Health Maintenance Insurance [facility] [employer] O MAP Advance Directives For more information, please contact: [phone] * Full Code (Latest Code Status on File) Date Activated Date Inactivated Comments 06/16/2023 11:52 AM 06/17/2023 4:28 AM * Full Code Date Activated Date Inactivated Comments 06/16/2023 8:56 AM 06/16/2023 11:52 AM Care Teams Energy Project Manager Relationship Specialty Start Date End Date Bolivar Dumont MD [address] [place] [address] PCP - General Family Medicine 06/18/23 Denice Chacon MD [address] [facility] [address] [place] [address] Interventional Cardiology 06/02/23 Elinor Chairez PA-C [address] [facility] [address] [place] [address] Cardiology 06/18/23 Cheikh Amin MD [address] [facility] [address] [place] [address] Surgeon Cardiothoracic Surgery 07/27/23
--- OUTSIDE RECORDS SUMMARY | 2024-12-06 11:24 | XMS_ITS | Referral Summary ---
Author Organization [employer] ([place], [place], [place], [place]) Address [address] [place] [address] Care Team Providers Care Assistant In Nursing Name Role Phone Denice Chacon MD Unavailable [phone] Bolivar Dumont MD Primary Care Provider [phone] Elinor ChairezC Unavailable [phone] Cheikh Amin MD Unavailable [phone] Encounters Date Type Department Care Team Description 11/09/2024 Refill [facility] Cardiology [address] [place] [address] Denice Chacon MD S/P CABG (coronary artery bypass graft); Stenosis of carotid artery, unspecified laterality; Status post arterial stent from Last 3 Months Allergies Active Allergy Reactions Criticality Noted Date [...] artery disease of n ative artery of [place] heart with stable angina pectoris 06/18/2023 07/10/2023 [...] Do you speak a language other than [place]omean at [facility]? No 07/16/2023 Do you want help with [...] 10:25 AM GASTONT Reji Olson RN * Because of a physical, mental, or emotional condition, do you have serious difficulty doing errandsalone such as visiting the doctor? Answer Date of Assessment Author No 07/19/2023 10:25 AM CDT Reji Olson RN Mental Status * Because of a physical, mental, or emotional condition, do you have serious difficulty concentrating, remembering, or making decisions? (5 years old or older) Answer Entry Date Author No 07/19/2023 10:25 AM Reji Lyn RN Plan of Treatment Upcoming Encounters Date Type Department Care Team (Late st Contact Info) Description 12/19/2024 3:15 PM EST Office Visit [facility] Cardiology [address] [place] [address] Charlotte Espinal MD [address] [place] [address] [address] [place] [address] Medical Devices Implanted Type Area Speech Language Pathology Assistant Device Identifier Shelf Expiration Date Model / Serial / Lot Marker Grdewey Rng Cor Byps [id number] - [id number] Implanted:Qty: 1 on 07/15/2023 by Cheikh Amin MD at [facility] N/A: Aorta PRECIOUS MED PRDT 04/08/2025 [id number] / / [id number] Procedures Procedure Name Priority Date/Time Associated Diagnosis Comments HEMOGLOBIN A1C Routine 07/10/2023 1:23 PM EDT Preop testing from Last 3 Months or Most Recently Relevant to Health Maintenance Results * Hemoglobin A1c (07/10/2023 1:23 PM EDT) Hemoglobin A1C 6.8 % 07/10/2023 6:47 PM EDT [facility] Comment: Hemoglobin A1C levels are related to mean glucose during the preceding 2-3 months. Less than 7% demonstrates glycemic control in diabetic patients. Hemoglobin AlC % Suggested Diagnosis > or = 6.5 Diabetic 5.7 - 6.4 Prediabetic <5.7 Non-diabetic eAVG Glucose 148.46 mg/dL 07/10/2023 6:47 PM EDT [facility] Blood Venipuncture / Unknown 07/10/2023 1:23 PM EDT 07/10/2023 2:32 PM EDT Cheikh Amin MD LAB BLOOD ORDERABLES Saba sean Result [facility] [address] [place] [id number], [facility] [phone] from Last 3 Months or Most Recently Relevant to Health Maintenance Insurance [facility] [employer] ACCESS O MAP Advance Directives For more information, please contact: [phone] * Full Code (Latest Code Status on File) Date Activated Date Inactivated Comments 06/16/2023 11:52 AM 06/17/2023 4:28 AM * Full Code Date Activated Date Inactivated Comments 06/16/2023 8:56 AM 06/16/2023 11:52 AM Care Teams Assistant In Nursing Relationship Specialty Start Date End Date Bolivar Dumont MD [address] [place] [address] PCP - General Family Medicine 06/18/23 Denice Chacon MD [address] [facility] [address] [place] [address] Interventional Cardiology 06/02/23 Elinor Chairez PAJerryC [address] [facility] [address] [place] [address] Cardiology 06/18/23 Cheikh Amin MD 14[address] [facility] [place] [address] Surgeon Cardiothoracic Surgery 07/27/23
--- NOTE | 2024-12-06 11:52 | ECG_ITS ---
APPROVED REPORT Exam: Resting ECG HR:76 bpm ECG Measurements Heart Rate 76 AXES GA 156 P 49 QRSd 92 QRS 82 QT 386 T 55 QTc 416 Conclusion SINUS RHYTHM WITH SINUS ARRHYTHMIA INCOMPLETE RIGHT BUNDLE BRANCH BLOCK [90+ ms QRS DURATION, TERMINAL R IN V1/V2, 40+ ms S IN I/aVL/V4/V5/V6] NONSPECIFIC T-WAVE ABNORMALITY BORDERLINE ECG UNCONFIRMED REPORT Electronically signed by : Rony Branham MD 12/07/2024 08:07:42
[2024-12-06 12:17] LABS: Anion Gap 13.9 mEq/L (5-15); Blood Urea Nitrogen 19 mg/dl (7-17); Calcium 9.4 mg/dl (8.4-10.2); Carbon Dioxide 27 mmol/L (22.0-30.0); Chloride 103 mmol/L (98-107); Creatinine Clearance Estimated 67 mL/min (50-200); Creatinine,Serum 0.90 mg/dl (0.52-1.04); Estimated Glomerular Filt Rate 63 ml/min (>60); GFR (African American) 76 ML/MIN (>60); Glucose 116 mg/dl (74-100); Potassium 3.9 mmoL/L (3.5-5.1); Sodium 140 mmol/L (136-145)
[2024-12-06 12:18] LABS: Hematocrit 43.0 % (37.0-47.0); Hemoglobin 13.9 g/dL (12.2-16.2); Immature Granulocytes % 0.5 %; Mean Corpuscular HGB Conc 32.3 g/dL (31.8-35.4); Mean Corpuscular Hemoglobin 32.9 pg (27.0-31.2); Mean Corpuscular Volume 101.9 fl (81-99); Nucleated Red Blood Cells % 0 %; Platelet Count 403 K/mm3 (142-424); Red Blood Count 4.22 M/mm3 (4.20-5.40); Red Cell Distribution Width-SD 49.2 fL; White Blood Count 14.1 K/mm3 (4.8-10.8)
== END 2024-12-06 23:59 | disposition home or self-care (01) ==
LOC: PREOP 11:19
PROVIDERS: Nurse Anesthetist, Certified Registered; PCP Family Medicine; Visit Provider Internal Medicine Pulmonary Disease
DX: Z01.810 Encounter for preprocedural cardiovascular examination (principal); Z01.812 Encounter for preprocedural laboratory examination; I49.8 Other specified cardiac arrhythmias; I45.19 Other right bundle-branch block; R94.31 Abnormal electrocardiogram [ECG] [EKG]
CPT/HCPCS: 80048; 85025; 93005

== ENCOUNTER 2024-12-07 07:53 | Outpatient (CLI) | payer MEDICARE, SELFPAY ==
--- OUTSIDE RECORDS SUMMARY | 2024-12-07 07:55 | XMS_ITS | Clinical Summary ---
Author Organization [facility] Address [address] [place] [address] Care Team Providers Care Hand Drawer In Name Role Phone Bolivar Dumont MD Primary Care Provider [phone] Allergies Active Allergy Reactions Criticality Noted Date [...] 2 - PCV20 or PCV21) 03/27/2016 03/27/2015 [id number] Vaccine (4 - season) 2024 12/18/2020, 05/07/2020, [...] patient's age to complete this topic Insurance [facility] MEDICARE Care Teams Hand Drawer In Relationship Specialty Start Date End Date Bolivar Dumont MD PCP - General 06/09/23
--- OUTSIDE RECORDS SUMMARY | 2024-12-07 07:55 | XMS_ITS | Encounter Summary ---
Author Organization [employer] ([place], [place], [place], [place]) Address [address] [place] [address] Care Team Providers Care Bilingual Executive Assistant Name Role Phone Denice Chacon MD Unavailable [phone] Bolivar Dumont MD Primary Care Provider [phone] Elinor Chairez PA-C Unavailable [phone] Cheikh Amin MD Unavailable [phone] Reason for Visit * Reason Comments Medication Refill Encounter Details Date Type Department Care Team (Late st Contact Info) Description 11/09/2024 Refill [facility] Cardiology [address] [place] [address] Denice Chacon MD 1401 [facility] [address] [place] [address] S/P CABG (coronary artery bypass [...] Do you speak a language other than Malian at [facility]? No 07/16/2023 Do you want help with [...] Entry Date Author No 07/19/2023 10:25 AM Reij Lyn RN documented in this encounter Plan of Treatment Upcoming Encounters Date Type Department Care Team (Late st Contact Info) Description 12/07/2024 11:45 AM EDT Office Visit [facility] Cardiology [address] [place] [address] Derek Hyman MD [address] [place] [address] [address] [place] [address] 12/19/2024 3:15 PM EST Office Visit [facility] Cardiology [address] [place] [phone] Charlotte Espinal MD [address] [place] [address] [address] [place], [place] [id number] documented as of this encounter Visit Diagnoses Diagnosis S/P CABG (coronary artery bypass graft) Postsurgical aortocoronary bypass status Stenosis of carotid artery, unspecified laterality Status post arterial stent documented in this encounter Care Teams Bilingual Executive Assistant Relationship Specialty Start Date End Date Bolivar Dumont MD [address] [place] [address] PCP - General Family Medicine 06/18/23 Denice Chacon MD [address] [place] [address] [address] [place] [address] Interventional Cardiology 06/02/23 Elinor Chairez PA-C [address] [place] [address] [address] [place] [address] Cardiology 06/18/23 Cheikh Amin MD [address] [place] [address] [address] [place] [address] Surgeon Cardiothoracic Surgery 07/27/23 documented as of this encounter
--- OUTSIDE RECORDS SUMMARY | 2024-12-07 07:55 | XMS_ITS | Referral Summary ---
Author Organization [employer] ([place], [place], [place], [place]) Address [address] [place] [address] Care Team Providers Care C Application Developer Name Role Phone Denice Chacon MD Unavailable [phone] Bolivar Dumont MD Primary Care Provider [phone] Elinor ChairezC Unavailable [phone] Cheikh Amin MD Unavailable [phone] Encounters Date Type Department Care Team Description 11/09/2024 Refill [facility] Cardiology [address] [place] [address] Denice Chacon MD S/P CABG [...] artery disease of n ative artery of [place] heart with stable angina pectoris 06/18/2023 07/10/2023 [...] Do you speak a language other than Ivorian at [facility]? No 07/16/2023 Do you want [...] 07/19/2023 10:25 AM GASTONT Reji Olson RN Plan of Treatment Upcoming Encounters Date Type Department Care Team (Late st Contact Info) Description 12/07/2024 11:45 AM EDT Office Visit [facility] Cardiology [address] [place] [address] Derek Hyman MD [address] [place] [address] [address] [place] [address] 12/19/2024 3:15 PM EST Office Visit [facility] Cardiology [address] [place] [address] Charlotte Espinal MD [address] [place] [address] [address] [place] [address] Medical Devices Implanted Type Area Control Cabinet Assembler Device Identifier Shelf Expiration Date Model / Serial / [place] [id number] - [id number] Implanted:Qty: 1 on 07/15/2023 by Cheikh Amin MD at [facility] N/A: Aorta PRECIOUS MED PRDT 04/08/2025 [id number] / / [id number] Procedures Procedure Name Priority Date/Time Associated Diagnosis Comments HEMOGLOBIN A1C Routine 07/10/2023 1:23 PM EDT Preop testing from Last 3 Months or Most Recently Relevant to Health Maintenance Results * Hemoglobin A1c (07/10/2023 1:23 PM EDT) Hemoglobin A1C 6.8 % 07/10/2023 6:[address] [facility] [place] Comment: Hemoglobin A1C levels are related to mean glucose during the preceding 2-3 months. Less than 7% demonstrates glycemic control in diabetic patients. Hemoglobin AlC % Suggested Diagnosis > or = 6.5 Diabetic 5.7 - 6.4 Prediabetic <5.7 Non-diabetic eAVG Glucose 148.46 mg/dL 07/10/2023 6:[address] [facility] [place] Blood Venipuncture / Unknown 07/10/2023 1:23 PM EDT 07/10/2023 2:32 PM EDT us Cheikh Amin MD LAB BLOOD ORDERABLES Saba estrada Result [facility] [place] [address] [phone] from Last 3 Months or Most Recently Relevant to Health Maintenance Insurance [facility] [employer] O MAP Advance Directives For more information, please contact: [phone] * Full Code (Latest Code Status on File) Date Activated Date Inactivated Comments 06/16/2023 11:52 AM 06/17/2023 4:28 AM * Full Code Date Activated Date Inactivated Comments 06/16/2023 8:56 AM 06/16/2023 11:52 AM Care Teams C Application Developer Relationship Specialty Start Date End Date Bolivar Dumont MD [address] [place] [address] PCP - General Family Medicine 06/18/23 Denice Chacon MD 1401 [facility] [address] [place] [address] Interventional Cardiology 06/02/23 Elinor Chairez PA-C [address] [place] [address] [address] [place] [id number] Cardiology 06/18/23 [place] [address] [place] [address] [address] [place] [address] Surgeon Cardiothoracic Surgery 07/27/23
--- OUTSIDE RECORDS SUMMARY | 2024-12-07 07:55 | XMS_ITS | Clinical Summary ---
Author Organization [employer] ([place], [place], [place], [place]) Address [address] [place] [address] Care Team Providers Care Drilling Inspector Name Role Phone Denice Chacon MD Unavailable [phone] Bolivar Dumont MD Primary Care Provider [phone] Elinor Chairez PA-C Unavailable [phone] Cheikh Amin MD Unavailable [phone] Allergies Active Allergy Reactions Criticality Noted Date [...] artery disease of n ative artery of [place] heart with stable angina pectoris 06/18/2023 07/10/2023 Encounters Date Type Department Care Team Description 11/09/2024 Refill [facility] Cardiology [address] [place] [address] Denice Chacon MD S/P CABG (coronary [...] Do you speak a language other than Andorran at ho me? No 07/16/2023 Do you [...] Description 12/07/2024 11:45 AM EDT Office Visit [facility] Cardiology [address] [place] [address] Derek Hyman MD [address] [place] [address] [address] [place] [address] 12/19/2024 3:15 PM EST Office Visit [facility] Cardiology [address] [place] [address] Charlotte Espnial MD [address] [place] [address] [address] [place] [address] Health Maintenance Due Date Last Done Comments [...] and Screening (12+) 08/03/2024 08/04/2023 COVID-19 VACCINE (2024- season) 2024 12/18/2020, 05/07/2020, 04/09/2020 Influenza Vaccine (#1) 2024 Medical Devices Implanted Type Area Vacuum Repairer Device Identifier Shelf Expiration Date Model / Serial / Lot Marker Grft Rng Cor [facility] [id number] - [id number] Implanted:Qty: 1 on 07/15/2023 by Cheikh Amin MD at [facility] N/A: Aorta PRECIOUS MED PRDT 04/08/2025 [id number] / / [id number] Procedures Procedure Name Priority Date/Time Associated Diagnosis Comments HEMOGLOBIN A1C Routine 07/10/2023 1:23 PM EDT Preop testing from Last 3 Months or Most Recently Relevant to Health Maintenance Results * Hemoglobin A1c (07/10/2023 1:23 PM EDT) Hemoglobin A1C 6.8 % 07/10/2023 6:47 PM EDT [facility] Comment: Hemoglobin A1C levels are related to mean glucose during the preceding 2-3 months. Less than 7% demonstrates glycemic control in diabetic patients. Hemoglobin AlC % Suggested Diagnosis > or = 6.5 Diabetic 5.7 - 6.4 Prediabetic <5.7 Non-diabetic eAVG Glucose 148.46 mg/dL 07/10/2023 6:47 PM EDT [facility] Blood Venipuncture / Unknown 07/10/2023 1:23 PM EDT 07/10/2023 2:32 PM EDT us Cheikh Amin MD LAB BLOOD ORDERABLES Saba estrada Result [facility] [address] [phone] from Last 3 Months or Most Recently Relevant to Health Maintenance Insurance [facility] Advance Directives For more information, please contact: [phone] * Full Code (Latest Code Status on File) Date Activated Date Inactivated Comments 06/16/2023 11:52 AM 06/17/2023 4:28 AM * Full Code Date Activated Date Inactivated Comments 06/16/2023 8:56 AM 06/16/2023 11:52 AM Care Teams Drilling Inspector Relationship Specialty Start Date End Date Bolivar Dumont MD [address] [place] [address] PCP - General Family Medicine 06/18/23 Denice Chacon MD [address] [place] [address] [address] [place] [address] Interventional Cardiology 06/02/23 Elinor Chairez PA-C [address] [place] [address] [address] [place], [place] [id number] Cardiology 06/18/23 Cheikh Amin MD [address] [place] [address] [address] [place] [address] Surgeon Cardiothoracic Surgery 07/27/23
--- OUTSIDE RECORDS SUMMARY | 2024-12-07 07:55 | XMS_ITS | Encounter Summary ---
Author Organization [employer] ([place], [place], [place], [place]) Address [address] [place] [address] Care Team Providers Care Sand Bobber Name Role Phone Denice Chacon MD Unavailable [phone] Bolivar Dumont MD Primary Care Provider [phone] Elinor Chairez PA-C Unavailable [phone] Cheikh Amin MD Unavailable [phone] Reason for Visit * Reason Comments Med Change Request Encounter Details Date Type Department Care Team (Late st Contact Info) Description 08/10/2023 [facility] Cardiothoracic Surgery - [facility] [address] [place] [address] [address] [facility] [place] [address] Thierno Gavin PA-C [address] [facility] [address] [place] [address] Social History Tobacco Use Types Packs/Day Years [...] Do you speak a language other than Amharic at [facility]? No 07/16/2023 Do you [...] EDT Can you send this in for [facility]? Thx documented in this encounter Plan of Treatment Upcoming Encounters Date Type Department Care Team (Late st Contact Info) Description 12/07/2024 11:45 AM EDT Office Visit [facility] Cardiology [address] [place], [place] [phone] Derek Hyman MD [address] [place] [address] [address] [place] [address] 12/19/2024 3:15 PM EST Office Visit [facility] Cardiology [address] [place] [phone] Charlotte Espinal MD [address] [place] [address] [address] [place] [address] documented as of this encounter Visit Diagnoses Not on filedocumented in this encounter Care Teams Sand Bobber Relationship Specialty Start Date End Date Bolivar Dumont MD [address] [place] [address] PCP - General Family Medicine 06/18/23 Denice Chacon MD [address] [facility] [address] [place] [id number] Interventional Cardiology 06/02/23 Elinor Chairez, PA-C [address] [facility] [address] [place] [address] Cardiology 06/18/23 [place] [address] [place] [address] [address] [place] [address] Surgeon Cardiothoracic Surgery 07/27/23 documented as of this encounter
[2024-12-07] MEDS: LEVALBUTEROL 1.25MG/3ML NEB 1.25 MG IH (09:37)
--- NOTE | 2024-12-07 09:38 | PC.NURSE ---
PFT and 6 Minute Walk completed on Pt without incident. Xopenex 1.25mg given via HHN, per written protocol, Pt tolerated well. Pt states she is unable to take Albuterol due to it raising her BP.
== END 2024-12-07 23:59 | disposition home or self-care (01) ==
LOC: RT 07:54
PROVIDERS: PCP Family Medicine; Visit Provider Internal Medicine Pulmonary Disease
DX: J44.9 Chronic obstructive pulmonary disease, unspecified (principal); R94.2 Abnormal results of pulmonary function studies
CPT/HCPCS: 94010; 94618; 94727; 94729; J7614

== ENCOUNTER 2024-12-09 06:14 | Day surgery (SDC) | payer MEDICARE, SELFPAY ==
[2024-12-06 13:37] VITALS: BMI 28.3
[2024-12-09] VITALS (12 sets, daily range): BP systolic 113–178; BP diastolic 54–97; PULSE 69–81; RESP 14–22; TEMP 36.1–38; O2SAT 90–99
[2024-12-09] MEDS: LACTATED RINGERS 1000ML 1,000 ML 25 ML IV (07:04)
--- NOTE | 2024-12-09 07:32 | P.PNANES_ITS ---
[facility] Disclaimer: The information contained in this section may have been updated after the patient was seen, as this information can be updated by other users. Medical History Allergic rhinitis Pulmonary emphysema History of smoking 30 or more pack years Cough Atypical chest pain Diabetes type 2, uncontrolled Bilateral carotid artery stenosis HTN (hypertension) AAA (abdominal aortic aneurysm) Aneurysm Obese Anxiety Bipolar 1 disorder COPD (chronic obstructive pulmonary disease) Vitamin D deficiency Hyperlipidemia Surgical History History of coronary artery bypass graft x 2 History of left-sided carotid endarterectomy Hx of tubal ligation History of cholecystectomy Family History Other COPD (chronic obstructive pulmonary disease) Cancer Diabetes Hyperlipidemia Kidney disease Thyroid disorder Social History (Updated 12/09/24 @ 06:55 by Elinor Ramesh RN) Smoking Status: Current every day smoker smoking status stop date: PT hasn't smoked since first part of 2023 alcohol intake: never substance use type: denies use current occupational status: disabled Travel in the last 8 weeks?: None household members: children housing: house Have you lived/traveled outside US in past 30 days?: No Contact w/someone who lives/traveled outside US past 30 days?: No Exposure to someone with infectious disease in past 14 days?: No Do you have a fever (greater than 100.4 F or 38 C)?: No Have you tested positive for COVID-19?: No Exposed to someone with COVID-19 in past 14 days?: No Do you have a sore throat?: No Do you have a cough?: No Do you have any weakness?: No Are you experiencing any nausea/vomitting?: No Do you have any diarrhea?: No Are you experiencing any unusual bleeding?: No Do you have any muscle aches/pain?: No Do you have any abdominal pain?: No Are you experiencing loss of taste or smell?: No [facility] Anesthesia Checklist Patient Identification Patient Identification: Arm Band and Family Structural Data Admitted From: Home Planned Operative Procedure/s: Bronchoscopy Consent for Planned Operative Procedure(s) Verified: Yes Verified Documents: Surgical Consent NPO Status Verified Time NPO: 00:00 Additional verifications Patient : No Anesthesia Reactions: No Hx Blood Transfusions: No Blood Transfusion Reaction: No Cephalosporin Allergy: No Previous Colonoscopy: Yes Airway Assessment Mallampati Score:: Class II C-Spine Mobility Assessed: Yes TMJ Mobility Assessed: Yes Dentition: Edentulous Neurological Assessment Level of Consciousness: Awake, Alert, Appropriate and Follows Commands Hx Seizures: No Numbness or tingling in extremities: No Anesthesia Plan Anesthesia Risk discussed: Yes ASA Class: III Anesthesia Type: General Preoperative Comments Pre-Operative Comments: CABG, 2023. Hx of [place], cleared by granite cutter apprentice. Acid reflux.
--- NOTE | 2024-12-09 09:53 | XR_ITS ---
FINAL REPORT CLINICAL HISTORY: ION BRONCH IN THE OR 12 min fluoro time 1025.23 dap FINDINGS: FLUOROSCOPY 1 spot film was obtained for bronchoscopy in the OR. Fluoroscopy time is 12 minutes. 1025.23 dap IMPRESSION: Fluoroscopy as above. Reviewed, Interpreted and Dictated by Elroy Kay MD Transcribed by Emperatriz Gomes Authenticated and [facility]
--- NOTE | 2024-12-09 10:09 | XR_ITS ---
FINAL REPORT CLINICAL HISTORY: post bronchoscopy,,coughing COMPARISON: None FINDINGS: The heart size is mildly enlarged. Sternotomy wires are present. Mild chronic changes are seen in the lungs. There is no focal infiltrate or edema. There are no pleural effusions. There is no pneumothorax. There is no osseous abnormality. IMPRESSION: No acute cardiopulmonary process Reviewed, Interpreted and Dictated by Elroy Kay MD Transcribed by Kirsty Forrester Authenticated and [facility]
--- NOTE | 2024-12-09 10:12 | P.PNANES_ITS ---
[facility] Anesthesia Record Part I Anesthesia Record I Intake, IV Amount: 700 Hydration: Adequate Estimated blood loss (mL): 5 Urine output (mL): 0 Blood Products used (#): none Blood Pressure: 148/74 SaO2: 95 Pulse Rate: 81 Airway Patency: Patent Respiratory Rate: 14 Temperature: 963 F Patient is:: Drowsy and Stable Stable to PACU at:: 12:13
--- NOTE | 2024-12-09 11:03 | EXP.BRONCH.N ---
Procedure: Date: 12/09/24 Patient Date of :: 1960 Procedure Performed:: Navigational bronchoscopy, airway examination, bronchoalveolar lavage, trans bronchial fine-needle aspiration, trans bronchial brushing and trans bronchial biopsy of lung nodule, endobronchial biopsy and endobronchial ultrasound-guided lymph node surveillance and fine-needle aspiration of lymph node. Indications:: Lung nodule and lymphadenopathy Performing Provider:: Lopez Linda MD Referring Provider:: Dr. Dumont Sedation:: General anesthesia Procedure:: Navigational bronchoscopy, airway examination, bronchoalveolar lavage, trans bronchial fine-needle aspiration, trans bronchial brushing and trans bronchial biopsy of lung nodule, endobronchial biopsy and endobronchial ultrasound-guided lymph node surveillance and fine-needle aspiration of lymph node. A clean diagnostic bronchoscopy was advanced to the ET tube and airway examination was performed. Airways appeared grossly normal, no evidence of mucoid secretions, mucous plugging active bleeding/old blood clots noted. Moderate amount of secretions were noted. Diagnostic bronchoscopy was retracted, and Robotic Ion bronchoscopy was introduced through the ET tube. Patient images were previously uploaded into the ION Plan point software. The target nodule sampling was planned, and the pathway was mapped. The nodule measured 21 mm in long axis. Following airway examination, airway registration was performed using shape sensing robot assisted bronchoscopy (SSRAB). We were 5 mm from the near edge of the nodule in the RUL. A Radial EBUS - [id number] was inserted to confirm the location which was tangential. Under fluoroscopy guidance the samples were taken. Sampling: A flexion 21 needle was used to perform FNA of theRUL Lung nodule. A total of 8 passes were made. This was followed by passes with a needle brush, 2 pass was made. Transbronchial forceps biopsies were then performed with a total of 8 biopsies were performed in the RULLung nodule. Bronchoalveolar lavage was performed with instillation of [15] cc normal saline with return of 5 cc back. Samples from transbronchial FNA, brush, forceps biopsy and bronchoalveolar lavage were sent in CytoLyt for cytopathologic examination. Biopsy specimens were also sent into normal saline cups for bacterial AFB fungal stain cultures. Ion robotic bronchoscopy was retracted and EBUS bronchoscope was introduced for lymph node surveillance. Five passes were taken using 21 gauge needing at lymph node stations 11R and 7. Resultant lymph node FNA sample were labelled separately for each lymph node station and were sent in CytoLyt for cytopathologic examination. Findings:: Please see the procedure note Recommendations:: Postoperative bronchoscopy instructions Follow in pulmonary clinic in 5 to 7 days Resume Brilinta from tomorrow morning, 12/10/2024 Complications:: No acute immediate complications Estimated blood obtained (mL): 15
--- NOTE | 2024-12-09 11:15 | EXP.ANES.II ---
[facility] Anesthesia Record Part II Anesthesia Record Part II Discharge Time: 10:35 Destination: Surgical Day Care (OP Surgery) PACU nurse assessment reviewed?: Yes Patient Condition:: Good Anesthesia Complications:: None Swallowing reflex intact?: Yes Airway Patency: Patent Cyanosis?: No Blood Pressure: 139/54 SaO2: 94 Respiratory Rate: 18 Pulse Rate: 69 Temperature: 97.7 F Mental Status: Alert & Oriented Pain level:: 0 Nausea and/or vomitting:: None Intake, IV Amount: 0 Hydration: Adequate
--- NOTE | 2024-12-09 11:16 | EXP.ANES.I ---
[facility] Anesthesia Record Part I Anesthesia Record I Intake, IV Amount: 1,100 Hydration: Adequate Estimated blood loss (mL): 15 Urine output (mL): 0 Blood Products used (#): none Blood Pressure: 169/97 SaO2: 99 Pulse Rate: 78 Airway Patency: Patent Respiratory Rate: 22 Temperature: 97 F Patient is:: Drowsy and Stable Stable to PACU at:: 10:05
== END 2024-12-09 11:10 | disposition home or self-care (01) ==
PROVIDERS: PCP Family Medicine; Visit Provider Internal Medicine Pulmonary Disease
PROC: (CPT 31623; principal; 2024-12-09 07:30)
DX: R91.1 Solitary pulmonary nodule (principal); R06.02 Shortness of breath; J43.9 Emphysema, unspecified; E11.9 Type 2 diabetes mellitus without complications; J30.9 Allergic rhinitis, unspecified; Z87.891 Personal history of nicotine dependence; I65.23 Occlusion and stenosis of bilateral carotid arteries; I10 Essential (primary) hypertension; I71.40 Abdominal aortic aneurysm, without rupture, unspecified; F41.9 Anxiety disorder, unspecified; F31.9 Bipolar disorder, unspecified; E55.9 Vitamin D deficiency, unspecified; E78.5 Hyperlipidemia, unspecified; Z88.6 Allergy status to analgesic agent; Z88.0 Allergy status to penicillin; Z88.8 Allergy status to other drugs, medicaments and biological substances; Z79.02 Long term (current) use of antithrombotics/antiplatelets; Z79.899 Other long term (current) drug therapy; Z95.1 Presence of aortocoronary bypass graft
CPT/HCPCS: 31623; 31624; 31627; 31628; 31629; 31652; 31654; 71045; 87070; 87101; 87116; 87186; 87205; 88112; 88173; 88305; J1100; J2003; J2250; J2405; J2704; J3010; J7120

== ENCOUNTER 2024-12-30 10:32 | Outpatient (CLI) | payer MEDICARE, SELFPAY ==
--- OUTSIDE RECORDS SUMMARY | 2024-12-07 10:45 | XMS_ITS | Encounter Summary ---
Author Organization [employer] ([place], [place], [place], [place], [place]) Address [address] [place] [address] Care Team Providers Care Psychiatric Clinical Nurse Specialist Name Role Phone Denice Chacon MD Unavailable [phone] Bolivar Dumont MD Primary Care Provider [phone] Elinor Chairez-C Unavailable [phone] Cheikh Amin MD Unavailable [phone] Reason for Referral * Ultrasound (Routine) - New Request Specialty Diagnoses / Procedures Referred By Contac t Referred To Contact Diagnoses Other specified symptoms and signs involving the circulatory and respiratory systems Procedures Ultrasound ankle / brachial indices extremity complete Bilateral Derek Hyman MD [address] [place] [address] [place] [address] Phone: tel: fax: Referral ID Status Reason Start Date Expiration Date V isits Requested Visits Authorized [id number] New Request 12/08/2024 12/08/2025 1 1 * Ultrasound (Routine) - New Request Specialty Diagnoses / Procedures Referred By Contac t Referred To Contact Diagnoses AAA (abdominal aortic aneurysm) (HCC) Procedures US DOPPLER AORTA/ILIAC/IVC COMPLETE Aorta Derek Hyman MD [address] [place] [address] [address] Phone: tel: fax: Referral ID Status Reason Start Date Expiration Date V isits Requested Visits Authorized [id number] New Request 12/08/2024 12/08/2025 1 1 Reason for Visit * Reason Comments Hypertension Patient presents in clinic today for their 1 year follow up and cardiac clearance. Patient states she has noticed recent episodes of shortness of breath dyspnea on exertion orthopneaDenies noticing any episodes of chest pain palpitations irregular heart beat dizziness near-syncope syncope lower extremity edema. Encounter Details Date Type Department Care Team (Late st Contact Info) Description 12/07/2024 11:45 AM EDT Office Visit [facility] Cardiology [address] [place] [address] Derek Hyman MD [address] [facility] [address] [place] [address] Status post arterial stent (Primary Dx); AAA (abdominal aortic aneurysm) (HCC); Other specified symptoms and signs involving the circulatory and respiratory systems Social History Tobacco Use Types Packs/Day Years Used Date Smoking Tobacco: Former Cigarettes Passive Smoke Exposure: Past Smokeless Tobacco: Never Tobacco Cessation:Counseling Given: Not [...] Do you speak a language other than Peruvian at [facility]? No 07/16/2023 Do you want help with [...] AM CDT documented as of this encounter Last Filed Vital Signs Vital Sign Reading Time Taken Comments Blood Pressure 124/80 12/07/2024 12:19 PM EDT Pulse 73 12/07/2024 12:19 PM EDT Temperature - - Respiratory Rate - - Oxygen Saturation 93% 12/07/2024 12: 19 PM EDT Inhaled Oxygen Concentration - - Weight 74.8 kg (164 lb 14.4 oz) 025 12:19 PM EDT Height 165.1 cm (5' 5 ) 12/07/2024 12:1 9 PM EDT Body Mass Index 27.44 12/07/2024 12:19 PM EDT documented in this encounter Functional Status * Are you [...] Reji Lyn RN documented in this encounter Progress Notes * Derek Hyman MD - 12/07/2024 11:45 AM EDT History Of Present Illness Patient presents in clinic today for their 1 year follow up and cardiac clearance. Patient states she has noticed recent episodes of shortness of breath dyspnea on exertion orthopnea Denies noticing any episodes of chest pain palpitations irregular heart beat dizziness near-syncope syncope lower extremity edema. Past Medical History She has a past medical history of Aortic aneurysm (HCC), Carotid stenosis, COPD (chronic obstructive pulmonary disease) (HCC), Coronary artery disease, Depression, HTN (hypertension), Hyperlipidemia,and Lumbar back pain. Surgical History She has a past surgical history that includes Carotid artery - subclavian artery bypass graft (Left); Tubal ligation; Cholecystectomy; BYPASS,CORONARY ENDOVASCULAR (N/A, 07/15/2023); ENDOSCOPIC VEIN HARVEST (Right, 07/15/2023); and DALE (N/A, 07/15/2023). Social History She reports that she has quit smoking. Her smoking use included cigarettes. She has a 52 pack-year smoking history. She has been exposed to tobacco smoke. She has never used smokeless tobacco. She reports current alcohol use. She reports that she does not use drugs. Family History Family History Problem Relation Name Age of Onset Arrhythmia Mother No Known Problem Father Allergies Aspirin, Plavix [Clopidogrel], Benadryl [Diphenhydramine Hcl], Nsaids (Non- Steroidal Anti-Inflammatory Drug), and Penicillin Medications Subjective Current Outpatient Medications Medication Instructions atorvastatin (LIPITOR) 80 mg, Every Night gabapentin (NEURONTIN) 800 mg, 3 times daily metFORMIN (GLUCOPHAGE) 500 mg, 2 times daily with breakfast and dinner metoprolol succinate (TOPROL-XL) 50 mg, oral, Daily metoprolol tartrate (LOPRESSOR) 25 MG tablet TAKE 0.5 TABLETS BY MOUTH 2 TIMES DAILY. omeprazole (PRILOSEC) 40 mg, Daily oxyCODONE (ROXICODONE) 10 mg, 3 times daily PRN oxyCODONE-acetaminophen (PERCOCET) 10-325 mg per tablet 1 tablet, oral, Every 8 hours PRN Repatha SureClick 140 mg/mL pen injector SMARTSI Milligram(s) SUB-Q Every 2 Weeks sertraline (ZOLOFT) 200 mg, Daily ticagrelor (BRILINTA) 90 mg, oral, 2 times daily, Please make and keep an appointment for refills. Trelegy Ellipta 200-62.5-25 mcg dsdv 1 puff, Daily Review of Systems Review of Systems All other systems reviewed and are negative. Last Recorded Vitals Blood pressure 124/80, pulse 73, height 1.651 m (5' 5 ), weight 74.8 kg (164 lb 14.4 oz), SpO2 93%. Physical Exam Vitals and nursing note reviewed. Neck: Vascular: No carotid bruit. Cardiovascular: Rate and Rhythm: Regular rhythm. Heart sounds: No murmur heard. No gallop. Abdominal: General: Abdomen is flat. Bowel sounds are normal. Palpations: Abdomen is soft. Musculoskeletal: General: No swelling. Normal range of motion. Skin: General: Skin is warm. Neurological: Mental Status: She is alert. 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 Echo (07/02) EF 60%, valves OK. HTN Hyperlipidemia on statins 4. R lung mass 5. AAA. Brother had AAA. Plan: DC Lopressor from medication list. Add Lisinopril 5 mg daily. Decrease Brilinta 60 mg BID (Do not substitute). Low cardiac risk for bronchoscopic right lung biopsy. Will fax note to Dr. Lopez Linda [phone] AAA Duplex + GEMMA. NPO for 4 hour before. Smoking cessation. Continue current CV meds. BP log twice daily at 8am/4pm. Heart healthy lifestyle including regular tolerable exercise, optimize diet to achieve ideal body weight. Lipid panel evaluation with primary MD. RTC in 3 months. I, Dr. Derek Hyman, personally performed the services described in this documentation, as scribed by Semaj Low in my presence, and it is both accurate and complete. documented in this encounter Miscellaneous Notes * Addendum Note - Semaj Low CMA - 12/07/2024 11:45 AM EDTAddended by: SEMAJ LOW on: 12/08/2024 07:59 AM Modules accepted: Orders documented in this encounter Plan of Treatment Scheduled Orders Name Type Priority Associated Diagnoses Orde r Schedule ECG 12 lead ECG Routine Status post arterial stent Ordered: 12/07/2024 US DOPPLER AORTA/ILIAC/IVC COMPLETE Aorta Imaging Routine AAA (abdominal aortic aneurysm) (HCC) Expected: 12/08/2024, Expires: 01/08/2026 Ultrasound ankle / brachial indices extremity complete Bilateral Imaging Routine Other specified symptoms and signs involving the circulatory and respiratory systems Expected: 12/08/2024, Expires: 01/08/2026 documented as of this encounter Visit Diagnoses Diagnosis Status post arterial stent- Primary AAA (abdominal aortic aneurysm) (HCC) Abdominal aneurysm without mention of rupture Other specified symptoms and signs involving the circulatory and respiratory systems documented in this encounter Care Teams Psychiatric Clinical Nurse Specialist Relationship Specialty Start Date End Date Bolivar Dumont MD [address] [place] [address] PCP - General Family Medicine 06/18/23 Denice Chacon MD [address] [place] [address] [address] [place] [address] Interventional Cardiology 06/02/23 Elinor Chairez, PA-C [address] [place] [address] [address] [place] [address] Cardiology 06/18/23 Cheikh Amin MD [address] [place] [address] [address] [place] [address] Surgeon Cardiothoracic Surgery 07/27/23 documented as of this encounter
--- OUTSIDE RECORDS SUMMARY | 2025-01-02 10:54 | XMS_ITS | Encounter Summary ---
Author Organization [employer] ([place], [place], [place], [place], [place]) Address [address] [place] [address] Care Team Providers Care Track Watchman Name Role Phone Denice Chacon MD Unavailable [phone] Bolivar Dumont MD Primary Care Provider [phone] Elinor Chairez PA-C Unavailable [phone] Cheikh Amin MD Unavailable [phone] Encounter Details Date Type Department Care Team (Latest Contact Info) Description 12/07/2024 Travel Social History Tobacco Use Types Packs/Day Years Used Date Smoking Tobacco: Former Cigarettes Passive Smoke Exposure: Past Smokeless Tobacco: Never Alcohol Use Standard Drinks/Week Comments Yes 0 (1 standard drink = 0.6 oz pur e alcohol) THREE TIMES PER YEAR Utilities Answer Date Recorded In the past 12 months, has t he [employer], gas, oil, or water [employer] threatened to shut off services in your [...] Do you speak a language other than [place] Sorbian at [facility]? No 07/16/2023 Do you want [...] on filedocumented in this encounter Care Teams Track Watchman Relationship Specialty Start Date End Date Bolivar Dumont MD [address] [place] [address] PCP - General Family Medicine 06/18/23 Denice Chacon MD [address] [place] [address] [address] Interventional Cardiology 06/02/23 Elinor Chairez PAJerryC [address] [place] [address] [id number] Cardiology 06/18/23 Cheikh Amin MD [address] [place] [address] [address] Surgeon Cardiothoracic Surgery 07/27/23 documented as of this encounter
--- OUTSIDE RECORDS SUMMARY | 2025-01-02 10:54 | XMS_ITS | Clinical Summary ---
Author Organization [facility] Address [address] [place] [address] Care Team Providers Care Card Folder Name Role Phone Bolivar Dumont MD Primary Care Provider [phone] Allergies Active Allergy Reactions Criticality Noted Date [...] 2 - PCV20 or PCV21) 03/27/2016 03/27/2015 [id number] Vaccine (4 - season) 2024 12/18/2020, 05/07/2020, [...] patient's age to complete this topic Insurance [facility] MEDICARE Care Teams Card Folder Relationship Specialty Start Date End Date Bolivar Dumont MD PCP - General 06/09/23
--- OUTSIDE RECORDS SUMMARY | 2025-01-02 10:54 | XMS_ITS | Clinical Summary ---
Author Organization [employer] ([place], [place], [place], [place], [place]) Address [address] [place] [address] Care Team Providers Care Job Counselor Name Role Phone Denice Chacon MD Unavailable [phone] Bolivar Dumont MD Primary Care Provider [phone] Elinor Chairez PA-C Unavailable [phone] Cheikh Amin MD Unavailable [phone] Allergies Active Allergy Reactions Criticality Noted Date Comments Aspirin Hives,Shortness Of Breath High 06/01/2023 Diphenhydramine Hcl 06/01/2023 Losartan 12/07/2024 Nsaids (Non-Steroidal Anti-Inflammatory Drug) 06/01/2023 Penicillin 06/01/2023 [...] (two) times daily with breakfast and dinner Look-alike/So und-alike medication. Active Repatha SureClick 140 mg/mL pen injector SMARTSI Milligram(s) SUB-Q Every 2 Weeks Active Trelegy Ellipta 200-62.5-25 mcg dsdv Take 1 puff by mouth daily. Active metoprolol succinate (TOPROL-XL) 50 MG 24 hr tablet Take 1 tablet (50 mg total) by mouth daily. Active oxyCODONE-aceta minophen (PERCOCET) 10-325 mg per tablet Take 1 tablet by mouth every 8 (eight) hours as needed. Active lisinopriL (ZESTRIL) 5 MG tablet Take 1 tablet (5 mg total) by mouth daily. 30 tablet 11 5 026 Active ticagrelor (Brilinta) 60 mg tab tablet Take 1 tablet (60 mg total) by mouth 2 (two) times daily. 60 tablet 11 Active metoprolol tartrate (LOPRESSOR) 25 MG tablet TAKE 0.5 TABLETS BY MOUTH 2 TIMES DAILY. 90 tablet 3 4 025 Discontin ued( Discontin ued) ticagrelor (Brilinta) 90 mg tab tabletIndicatio ns:S/P CABG (coronary artery bypass graft),Stenosis of carotid artery, unspecified laterality,Stat us post arterial stent Take 1 tablet (90 mg total) by mouth 2 (two) times daily Please make and keep an appointment for refills.. 120 tablet 5 025 Discontin ued( Discontin ued) Active Problems Problem Noted Date Diagnosed Date [...] artery disease of n ative artery of [place] heart with stable angina pectoris 06/18/2023 07/10/2023 Encounters Date Type Department Care Team Description 12/07/2024 11:45 AM EDT Office Visit [facility] Cardiology [address] [place] [phone] Derek Hyman MD Status post arterial stent (Primary Dx); AAA (abdominal aortic aneurysm) (HCC); Other specified symptoms and signs involving the circulatory and respiratory systems 12/07/2024 Travel from Last 3 Months Family History Medical [...] Do you speak a language other than Congolese at [facility]? No 07/16/2023 Do you want [...] Pulse 73 12/07/2024 12:19 PM EDT Temperature 36.6 C (97.8 F) 07/19/2023 8:19 AM EDT Respiratory Rate 20 07/16/2023 4:15 PM EDT Oxygen Saturation 93% 12/07/2024 12: 19 PM EDT Inhaled Oxygen Concentration 50% 07/15/2023 6 :30 PM EDT Weight 74.8 kg (164 lb 14.4 oz) 025 12:19 PM EDT Height 165.1 cm (5' 5 ) 12/07/2024 12:1 9 PM EDT Body Mass Index 27.44 12/07/2024 12:19 PM EDT Plan of Treatment Health Maintenance [...] Screening 02/10/2024 Medicare Initial AWV [id number] 02/11/2024 COVID-19 VACCINE ( season) 2024 12/18/2020, 05/07/2020, 04/09/2020 Influenza Vaccine (#1) 2024 Tobacco Cessation Counseling and Screening (12+) 12/07/2025 12/07/2024 Medical Devices Implanted Type Area Power Engineer Device Identifier Shelf Expiration Date Model / Serial / Lot Marker [facility] Rng Cor [facility] [id number] - [id number] Implanted:Qty: 1 on 07/15/2023 by Cheikh Amin MD at [facility] N/A: Aorta PRECIOUS MED PRDT 04/08/2025 [id number] / / [id number] Procedures Procedure Name Priority Date/Time Associated Diagnosis Comments HEMOGLOBIN A1C Routine 07/10/2023 1:23 PM EDT Preop testing from Last 3 Months or Most Recently Relevant to Health Maintenance Results * Hemoglobin A1c (07/10/2023 1:23 PM EDT) Hemoglobin A1C 6.8 % 07/10/2023 6:47 PM EDT [facility] Comment: Hemoglobin A1C levels are related to mean glucose during the preceding 2-3 months. Less than 7% demonstrates glycemic control in diabetic patients. Hemoglobin AlC % Suggested Diagnosis > or = 6.5 Diabetic 5.7 - 6.4 Prediabetic <5.7 Non-diabetic eAVG Glucose 148.46 mg/dL 07/10/2023 6:47 PM EDT [facility] Blood Venipuncture / Unknown 07/10/2023 1:23 PM EDT 07/10/2023 2:32 PM EDT Cheikh Amin MD LAB BLOOD ORDERABLES Saba estrada Result [facility] [address] [phone] from Last 3 Months or Most Recently Relevant to Health Maintenance Insurance [facility] ACCESS O MAP Advance Directives For more information, please contact: [phone] * Full Code (Latest Code Status on File) Date Activated Date Inactivated Comments 06/16/2023 11:52 AM 06/17/2023 4:28 AM * Full Code Date Activated Date Inactivated Comments 06/16/2023 8:56 AM 06/16/2023 11:52 AM Care Teams Job Counselor Relationship Specialty Start Date End Date Bolivar Dumont MD [address] [place] [address] PCP - General Family Medicine 06/18/23 Denice Chacon MD [address] [place] [address] [address] [place] [address] Interventional Cardiology 06/02/23 Elinor Chairez, PA-C [address] [place] [address] [address] [place], [place] [id number] Cardiology 06/18/23 Cheikh Amin MD [address] [place] [address] [address] [place] [address] Surgeon Cardiothoracic Surgery 07/27/23
--- OUTSIDE RECORDS SUMMARY | 2025-01-02 10:54 | XMS_ITS | Referral Summary ---
Author Organization [employer] ([place], [place], [place], [place], [place]) Address [address] [place] [address] Care Team Providers Care School Secretary Name Role Phone Denice Chacon MD Unavailable [phone] Bolivar Dumont MD Primary Care Provider [phone] Elinor ChairezC Unavailable [phone] Cheikh Amin MD Unavailable [phone] Encounters Date Type Department Care Team Description 12/07/2024 Travel 12/07/2024 11:45 AM EDT Office Visit [facility] Cardiology [address] [place] [phone] Derek Hyman MD Status post arterial stent (Primary Dx); AAA (abdominal aortic aneurysm) (HCC); Other specified symptoms and signs involving the circulatory and respiratory systems from Last 3 Months Allergies Active Allergy [...] injector SMARTSI Milligram(s) SUB-Q Every 2 Weeks 5 Active Trelegy Ellipta 200-62.5-25 mcg dsdv Take 1 puff by mouth daily. 5 Active metoprolol succinate (TOPROL-XL) 50 MG 24 [...] 2 (two) times daily. 60 tablet 11 5 Active metoprolol tartrate (LOPRESSOR) 25 MG tablet [...] 07/10/2023 07/10/2023 Obesity (BMI 30.0-34.9) 07/10/2023 07/10/19 Overweight 07/10/2023 07/10/2023 Stenosis of carotid artery 07/10/202307/09 Tobacco use 07/10/2023 07/10/2023 Uncontrolled type 2 diabetes mellitus 07/10/2023 07/10/2023 HTN (hypertension) 07/10/2023 07/10/2023 Primary hypertension 06/18/2023 Resolved Problems Problem Noted Date Diagnosed Date Resolved Date Coronary artery disease of n ative artery of [place] heart with stable angina pectoris 06/18/2023 07/10/2023 [...] Do you speak a language other than [place] at [facility]? No 07/16/2023 Do you [...] Mass Index 27.44 12/07/2024 12:19 PM EDT Functional Status * Are you [...] on file Medical Devices Implanted Type Area Side Seam Tender Device Identifier Shelf Expiration Date Model / Serial / Lot Marker [employer] Cor [facility] [id number] - [id number] Implanted:Qty: 1 on 07/15/2023 by Cheikh Amin MD at [facility] N/A: Aorta PRECIOUS MED PRDT 04/08/2025 [id number] / / [id number] Procedures Procedure Name Priority Date/Time Associated Diagnosis Comments HEMOGLOBIN A1C Routine 07/10/2023 1:23 PM EDT Preop testing from Last 3 Months or Most Recently Relevant to Health Maintenance Results * Hemoglobin A1c (07/10/2023 1:23 PM EDT) Hemoglobin A1C 6.8 % 07/10/2023 6:47 PM EDT [facility] Comment: Hemoglobin A1C levels are related to mean glucose during the preceding 2-3 months. Less than 7% demonstrates glycemic control in diabetic patients. Hemoglobin AlC % Suggested Diagnosis > or = 6.5 Diabetic 5.7 - 6.4 Prediabetic <5.7 Non-diabetic eAVG Glucose 148.46 mg/dL 07/10/2023 6:47 PM EDT [facility] Blood Venipuncture / Unknown 07/10/2023 1:23 PM EDT 07/10/2023 2:32 PM EDT Cheikh Amin MD LAB BLOOD ORDERABLES Saba estrada Result [facility] [address] [phone] from Last 3 Months or Most Recently Relevant to Health Maintenance Insurance [facility] ACCESS O MAP Advance Directives For more information, please contact: [phone] * Full Code (Latest Code Status on File) Date Activated Date Inactivated Comments 06/16/2023 11:52 AM 06/17/2023 4:28 AM * Full Code Date Activated Date Inactivated Comments 06/16/2023 8:56 AM 06/16/2023 11:52 AM Care Teams School Secretary Relationship Specialty Start Date End Date Bolivar Dumont MD [address] [place] [address] PCP - General Family Medicine 06/18/23 Denice Chacon MD [address] [facility] [address] [place] [address] Interventional Cardiology 06/02/23 Elinor Chairez PA-C [address] [place] [address] [address] [place], [place] [id number] Cardiology 06/18/23 [place] [address] [place] [address] [address] [place] [address] Surgeon Cardiothoracic Surgery 07/27/23
== END 2024-12-30 23:59 ==
LOC: LAB.DROPOF 01-02 10:33
PROVIDERS: PCP Family Medicine; Visit Provider Family Medicine
DX: I10 Essential (primary) hypertension (principal); E11.9 Type 2 diabetes mellitus without complications
CPT/HCPCS: 82043; 82570